=== PATIENT | female | born 1995 | race Caucasian/White ===

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

== ENCOUNTER 2017-03-23 11:58 | Emergency (ER) | payer OTHER ==
[2017-03-23] MEDS ORDERED: ONDANSETRON 4 MG/2 ML VIAL IVP STA (13:35)
[2017-03-23] MEDS ORDERED: SODIUM CHLORIDE 0.9% 2,000 ML IV ONE (13:36)
[2017-03-23] MEDS ORDERED: MORPHINE SULFATE 2 MG/ML SYRINGE IVP ONE (13:36)
--- NOTE | 2017-03-23 13:46 | ED ---
Abdominal Pain HPI - General Chief Complaint: Abdominal Pain Stated Complaint: Vomiting, Diarrhea Time Seen by Provider: 03/23/17 13:26 Source: patient Mode of arrival: ambulatory Limitations: no limitations - History of Present Illness Initial Comments: This is a 21-year-old female who presents with a chief complaint of vomiting, diarrhea and headache which began 1 day ago. The patient was up all night due to the vomiting and diarrhea. She has right-sided abdominal pain which has been exacerbated by the symptoms, but she states this has been present since giving in September 2016. Today, she feels like her face and head are "on fire" and the pain is 9/10 at times. She has a decreased appetite and denies cough, fevers and chills. - Related Data Home Medications Medication Instructions Recorded Confirmed Acetaminophen Tab [Tylenol Tab] 1,000 mg PO Q6HR PRN 03/23/17 03/23/17 Previous Rx's Medication Instructions Recorded Ondansetron Odt [Zofran Odt] 4 mg PO Q8HR PRN #10 tab 03/23/17 Allergies Allergy/AdvReac Type Severity Reaction Status Date / Time bismuth subsalicylate Allergy Anaphylaxis Verified 03/23/17 13:40 [From Pepto-Bismol] codeine Allergy Anaphylaxis Verified 03/23/17 13:40 ibuprofen Allergy Anaphylaxis Verified 03/23/17 13:40 red dye Allergy Unknown Verified 03/23/17 13:40 Review of Systems ROS Statement: Those systems with pertinent positive or pertinent negative responses have been documented in the HPI. ROS Other: All systems not noted in ROS Statement are negative. Past Medical History Past Medical History: No Reported History History of Any Multi-Drug Resistant Organisms: None Reported Past Surgical History: No Surgical Hx Reported Past Anesthesia/Blood Transfusion Reactions: No Reported Reaction Past Psychological History: No Psychological Hx Reported Smoking Status: Current every day smoker Past Alcohol Use History: None Reported Past Drug Use History: None Reported - Past Family History Father Family Medical History: No Reported History General Exam Limitations: no limitations General appearance: alert, in no apparent distress Head exam: Present: atraumatic, normocephalic, normal inspection Eye exam: Present: normal appearance, PERRL, EOMI. Absent: scleral icterus, conjunctival injection, periorbital swelling ENT exam: Present: normal exam, normal oropharynx, mucous membranes moist Neck exam: Present: normal inspection, full ROM. Absent: tenderness, meningismus, lymphadenopathy Respiratory exam: Present: normal lung sounds bilaterally. Absent: respiratory distress, wheezes, rales, rhonchi, stridor Cardiovascular Exam: Present: normal rhythm, tachycardia, normal heart sounds. Absent: systolic murmur, diastolic murmur, rubs, gallop, clicks GI/Abdominal exam: Present: soft, tenderness (Bowel sounds auscultated in all 4 quadrants. Right lower/lft quadrant tender with light palpation.), normal bowel sounds. Absent: distended, guarding, rebound, rigid, mass, bruit, pulsatile mass Back exam: Present: normal inspection. Absent: CVA tenderness (R), CVA tenderness (L) Neurological exam: Present: alert, oriented X3, CN II-XII intact Psychiatric exam: Present: normal affect, normal mood Skin exam: Present: warm, dry, intact, normal color. Absent: rash Course Vital Signs 03/23/17 12:32 Temperature 99.2 F Pulse Rate 126 H Respiratory 18 Rate Blood Pressure 127/76 O2 Sat by Pulse 98 Oximetry Medical Decision Making - Medical Decision Making 21-year-old female to emergency from for abdominal discomfort nausea vomiting diarrhea. Patient states symptoms started yesterday significant other and household had some her symptoms. Patient states she does feel improved at this time. Patient was hydrated feels better after antiemetics. Labwork reviewed unremarkable. Patient's abdomen soft and essentially nontender. - Lab Data Result diagrams: 03/23/17 13:48 03/23/17 13:48 Lab Results 03/23/17 03/23/17 03/23/17 Range/Units 13:48 13:48 13:48 WBC 8.3 (4.0-11.0) k/uL RBC 4.45 (3.80-5.40) m/uL Hgb 13.8 (11.4-16.0) gm/dL Hct 41.4 (34.0-46.0) % MCV 93.0 (80.0-100.0) fL MCH 30.9 (25.0-35.0) pg MCHC 33.3 (31.0-37.0) g/dL RDW 14.4 (11.5-15.5) % Plt Count 210 (150-450) k/uL Neutrophils % 86 % Lymphocytes % 7 % Monocytes % 5 % Eosinophils % 1 % Basophils % 0 % Neutrophils # 7.1 (1.3-7.7) k/uL Lymphocytes # 0.6 L (1.0-4.8) k/uL Monocytes # 0.4 (0-1.0) k/uL Eosinophils # 0.1 (0-0.7) k/uL Basophils # 0.0 (0-0.2) k/uL Sodium 142 (137-145) mmol/L Potassium 3.6 (3.5-5.1) mmol/L Chloride 102 (98-107) mmol/L Carbon Dioxide 26 (22-30) mmol/L Anion Gap 14 mmol/L BUN 12 (7-17) mg/dL Creatinine 0.71 (0.52-1.04) mg/dL Est GFR (MDRD) Af Amer >60 (>60 ml/min/1.73 sqM) Est GFR (MDRD) Non-Af >60 (>60 ml/min/1.73 sqM) Glucose 97 (74-99) mg/dL Calcium 9.5 (8.4-10.2) mg/dL Total Bilirubin 1.4 H (0.2-1.3) mg/dL AST 20 (14-36) U/L ALT 34 (9-52) U/L Alkaline Phosphatase 71 (38-126) U/L Total Protein 7.5 (6.3-8.2) g/dL Albumin 4.5 (3.5-5.0) g/dL Amylase 39 (30-110) U/L Lipase 44 (23-300) U/L Urine Color Urine Appearance (Clear) Urine pH (5.0-8.0) Ur Specific [place] (1.001-1.035) Urine Protein (Negative) Urine Glucose (UA) (Negative) Urine Ketones (Negative) Urine Blood (Negative) Urine Nitrite (Negative) Urine Bilirubin (Negative) Urine Urobilinogen (<2.0) mg/dL Ur Leukocyte Esterase (Negative) Urine HCG, Qual Not Detected (Not Detectd) 03/23/17 Range/Units 13:48 WBC (4.0-11.0) k/uL RBC (3.80-5.40) m/uL Hgb (11.4-16.0) gm/dL Hct (34.0-46.0) % MCV (80.0-100.0) fL MCH (25.0-35.0) pg MCHC (31.0-37.0) g/dL RDW (11.5-15.5) % Plt Count (150-450) k/uL Neutrophils % % Lymphocytes % % Monocytes % % Eosinophils % % Basophils % % Neutrophils # (1.3-7.7) k/uL Lymphocytes # (1.0-4.8) k/uL Monocytes # (0-1.0) k/uL Eosinophils # (0-0.7) k/uL Basophils # (0-0.2) k/uL Sodium (137-145) mmol/L Potassium (3.5-5.1) mmol/L Chloride (98-107) mmol/L Carbon Dioxide (22-30) mmol/L Anion Gap mmol/L BUN (7-17) mg/dL Creatinine (0.52-1.04) mg/dL Est GFR (MDRD) Af Amer (>60 ml/min/1.73 sqM) Est GFR (MDRD) Non-Af (>60 ml/min/1.73 sqM) Glucose (74-99) mg/dL Calcium (8.4-10.2) mg/dL Total Bilirubin (0.2-1.3) mg/dL AST (14-36) U/L ALT (9-52) U/L Alkaline Phosphatase (38-126) U/L Total Protein (6.3-8.2) g/dL Albumin (3.5-5.0) g/dL Amylase (30-110) U/L Lipase (23-300) U/L Urine Color Yellow Urine Appearance Clear (Clear) Urine pH 6.0 (5.0-8.0) Ur Specific [place] 1.030 (1.001-1.035) Urine Protein Trace H (Negative) Urine Glucose (UA) Negative (Negative) Urine Ketones Negative (Negative) Urine Blood Negative (Negative) Urine Nitrite Negative (Negative) Urine Bilirubin Negative (Negative) Urine Urobilinogen 4.0 (<2.0) mg/dL Ur Leukocyte Esterase Negative (Negative) Urine HCG, Qual (Not Detectd) Disposition Clinical Impression: Gastroenteritis Disposition: HOME SELF-CARE Condition: Stable Instructions: Gastroenteritis (ED) Additional Instructions: Please return to the Emergency Department if symptoms worsen or any other concerns. Prescriptions: Ondansetron Odt [Zofran Odt] 4 mg PO Q8HR PRN #10 tab PRN Reason: Nausea Referrals: None,Stated [Primary Care Provider] - 1-2 days Time of Disposition: 14:28
[2017-03-23 14:00] LABS: Appearance,Urine Clear (Clear); Basophils % (A) 0 %; Bilirubin,Urine Negative (Negative); Blood,Urine Negative (Negative); Color,Urine Yellow; Eosinophils # (A) 0.1 k/uL (0-0.7); Eosinophils % (A) 1 %; Glucose,Urine (UA) Negative (Negative); HCT 41.4 % (34.0-46.0); HGB 13.8 gm/dL (11.4-16.0); Ketones,Urine Negative (Negative); Leukocyte Esterase,Urine Negative (Negative); Lymphocytes # (A) 0.6 k/uL (1.0-4.8); Lymphocytes % (A) 7 %; MCH 30.9 pg (25.0-35.0); MCHC 33.3 g/dL (31.0-37.0); Monocytes # (A) 0.4 k/uL (0-1.0); Monocytes % (A) 5 %; Neutrophils # (A) 7.1 k/uL (1.3-7.7); Neutrophils % (A) 86 %; Nitrite,Urine Negative (Negative); Platelet Count 210 k/uL (150-450); Protein,Urine Trace (Negative); RBC 4.45 m/uL (3.80-5.40); RDW 14.4 % (11.5-15.5); WBC 8.3 k/uL (4.0-11.0)
[2017-03-23] MEDS ORDERED: MORPHINE SULFATE 4 MG/ML SYRINGE IVP ONE (14:00)
[2017-03-23 14:06] LABS: ALT 34 U/L (9-52); AST 20 U/L (14-36); Albumin 4.5 g/dL (3.5-5.0); Alkaline Phosphatase 71 U/L (38-126); Amylase 39 U/L (30-110); Anion Gap 14 mmol/L; Blood Urea Nitrogen 12 mg/dL (7-17); Calcium 9.5 mg/dL (8.4-10.2); Carbon Dioxide 26 mmol/L (22-30); Chloride 102 mmol/L (98-107); Glucose 97 mg/dL (74-99); Lipase 44 U/L (23-300); Potassium 3.6 mmol/L (3.5-5.1); Sodium 142 mmol/L (137-145); Total Bilirubin 1.4 mg/dL (0.2-1.3); Total Protein 7.5 g/dL (6.3-8.2)
[2017-03-23] MEDS ORDERED: ACETAMINOPHEN TAB 500 MG TAB PO STA (14:26)
[2017-03-23 14:34] VITALS: RESP 16
[2017-03-23 15:15] VITALS: BP 135/76; PULSE 106; TEMP 98
== END 2017-03-23 15:15 | disposition home or self-care (01) ==
LOC: EC 11:58
DX: K52.9 Noninfective gastroenteritis and colitis, unspecified (principal); F17.200 Nicotine dependence, unspecified, uncomplicated; Z88.5 Allergy status to narcotic agent; Z88.6 Allergy status to analgesic agent; Z91.02 Food additives allergy status; Z88.8 Allergy status to other drugs, medicaments and biological substances
CPT/HCPCS: 36415; 80053; 82150; 83690; 85025; 81003; 81025; 99284; 96374; 96375; 96361; J2270; J2405

== ENCOUNTER 2017-05-19 12:27 | Emergency (ER) | payer OTHER ==
[2017-05-19 13:17] VITALS: RESP 20
--- NOTE | 2017-05-19 14:01 | ED ---
General Adult HPI - General Chief complaint: ENT Stated complaint: Sore throat Time Seen by Provider: 05/19/17 13:25 Source: patient, RN notes reviewed Mode of arrival: ambulatory Limitations: no limitations - History of Present Illness Initial comments: 21-year-old female presents to the emergency department for a chief complaint of pilonidal cyst. She has had the cyst for about 2 months but it just started draining yesterday. Patient has seen Dr. Boyer who put her on Keflex and did not want to do any surgery. She has an appointment with him again in a week. Patient denies any fevers or chills at home. Patient denies any spreading redness or increasing infection. Patient took a bath today which helped it to drain. Patient states it is not all that uncomfortable. She can sit up fine and only has discomfort when she presses on that area. Patient is in a competition for [employer] this weekend and is worried about healing time. - Related Data Previous Rx's Medication Instructions Recorded Amoxic-Pot Clav 500-125 mg 1 tab PO Q8H 10 Days tab 05/19/17 [Augmentin 500-125 mg] Allergies Allergy/AdvReac Type Severity Reaction Status Date / Time bismuth subsalicylate Allergy Anaphylaxis Verified 05/19/17 13:17 [From Pepto-Bismol] codeine Allergy Anaphylaxis Verified 05/19/17 13:17 ibuprofen Allergy Anaphylaxis Verified 05/19/17 13:17 red dye Allergy Unknown Verified 05/19/17 13:17 Review of Systems ROS Statement: Those systems with pertinent positive or pertinent negative responses have been documented in the HPI. ROS Other: All systems not noted in ROS Statement are negative. Past Medical History Past Medical History: No Reported History History of Any Multi-Drug Resistant Organisms: None Reported Past Surgical History: No Surgical Hx Reported Past Anesthesia/Blood Transfusion Reactions: No Reported Reaction Past Psychological History: No Psychological Hx Reported Smoking Status: Current every day smoker Past Alcohol Use History: None Reported Past Drug Use History: None Reported - Past Family History Father Family Medical History: No Reported History General Exam Limitations: no limitations Respiratory exam: Present: normal lung sounds bilaterally. Absent: respiratory distress, wheezes, rales, rhonchi, stridor Cardiovascular Exam: Present: regular rate, normal rhythm, normal heart sounds. Absent: systolic murmur, diastolic murmur, rubs, gallop, clicks Skin exam: Present: other (1 cm pilonidal cyst on the cleft of the buttock. Cyst has a drainage point already. No spreading redness beyond the site.) Course Vital Signs 05/19/17 13:15 Temperature 99 F Pulse Rate 115 H Respiratory 20 Rate Blood Pressure 139/80 O2 Sat by Pulse 98 Oximetry Medical Decision Making - Medical Decision Making 21-year-old female presents to the emergency department for chief complaint of pilonidal cyst. She has done a course of Keflex about 2 months ago. She saw Dr. Polanco who did not want to perform surgery 2 months ago. She has another appointment with him on Tuesday. The cyst is about 1 cm and has already formed a drainage point. 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 Discussed using warm compresses on the cyst which will help it to drain. They will follow up with the surgeon in one week. She will take Augmentin until that time. She will return to the emergency Department if she has any increasing signs of infection or spreading redness. She will also return if she develops a fever. She can take ibuprofen and Tylenol for pain relief. Disposition Clinical Impression: Pilonidal abscess Disposition: HOME SELF-CARE Condition: Good Instructions: Pilonidal Cyst (ED), Warm Compress or Soak (ED) Additional Instructions: Please take ibuprofen or Tylenol for pain relief. Please take course of Augmentin as directed. Please follow-up with the surgeon in one week as discussed. Please return to the emergency department if symptoms are worsening , you develop fevers, or you notice spreading redness. Prescriptions: Amoxic-Pot Clav 500-125 mg [Augmentin 500-125 mg] 1 tab PO Q8H 10 Days tab Referrals: None,Stated [Primary Care Provider] - 1-2 days
--- NOTE | 2017-05-19 14:38 | XR ---
EXAMINATION TYPE: XR chest 2V DATE OF EXAM: 05/19/2017 COMPARISON: None HISTORY: 21-year-old female with pain TECHNIQUE: PA and lateral views FINDINGS: The cardiomediastinal silhouette, aorta, and pulmonary vasculature are within normal limits. Subtle p atchy right lower lung density asymmetric to the contralateral side. No other consolidation or pleura l effusion. IMPRESSION: Possible subtle early developing infiltrate at the right lower lung.
--- NOTE | 2017-05-19 14:48 | ED ---
Medical Decision Making - Medical Decision Making 21-year-old female presents to the emergency department for a chief complaint of cough. Patient states she has had a cough for about 4 days now. Patient also admits to congestion and states she has had ear pressure. Patient states she has a slight sore throat when she coughs. Patient denies any abdominal pain nausea or vomiting. Patient denies any chest pain. Patient denies a history of asthma. Patient denies shortness of breath or wheezing. Patient states she has had some chills but has not had any fevers at home. She has not taken anything for relief. On exam patient has clear TMs and a slightly erythematous throat. No exudates present. Patient has mild tenderness of the submandibular lymph nodes. No tenderness on the back of the neck. Patient's lungs are clear to auscultation bilaterally. On cardiovascular exam patient has a regular rate and rhythm and no murmurs or rubs. Patient has a benign abdominal exam with no tenderness. Patient is afebrile on presentation. Temperature 99, pulse 115, respirations 20 , blood pressure 139/80 and pulse ox 98% on room air. Negative influenza B and B. Negative group A strep. Chest x-ray reveals a subtle patchy right lower lung density. No other consolidation or pleural effusion. Patient will be given a course of azithromycin as well as Tessalon Perles. Patient is to follow up with primary care provider in one to 2 days. She is to return to the emergency Department if she has any worsening symptoms including shortness of breath or high fevers. - Lab Data Lab Results 05/19/17 05/19/17 05/19/17 Range/Units 13:35 13:35 13:35 Urine HCG, Qual Not Detected (Not Detectd) Influenza Type A RNA Not Detected (Not Detectd) Influenza Type B (PCR) Not Detected (Not Detectd) Group A Strep Rapid Negative (Negative) Disposition Clinical Impression: Pneumonia Disposition: HOME SELF-CARE Condition: Good Instructions: Pneumonia (ED) Additional Instructions: Please take ibuprofen or Tylenol for pain relief and fever reduction. Please take course of Azithromycin as directed. Please follow-up with primary care provider in one to 2 days. Please return to the emergency department if symptoms are worsening, you develop high fevers, or increasing shortness of breath. Prescriptions: Amoxic-Pot Clav 500-125 mg [Augmentin 500-125 mg] 1 tab PO Q8H 10 Days tab Azithromycin [Zithromax Z-pack] 250 mg PO DIRECTED #6 tab Benzonatate [Tessalon Perles] 200 mg PO Q8H PRN #15 capsule PRN Reason: Cough Referrals: None,Stated [Primary Care Provider] - 1-2 days
[2017-05-19 15:06] VITALS: BP 122/72; PULSE 94; TEMP 98.3
== END 2017-05-19 15:05 | disposition home or self-care (01) ==
LOC: EC 12:27
DX: J18.9 Pneumonia, unspecified organism (principal); L05.91 Pilonidal cyst without abscess; J02.9 Acute pharyngitis, unspecified; F17.200 Nicotine dependence, unspecified, uncomplicated; Z88.5 Allergy status to narcotic agent; Z88.6 Allergy status to analgesic agent; Z91.048 Other nonmedicinal substance allergy status; Z88.8 Allergy status to other drugs, medicaments and biological substances
CPT/HCPCS: 71046; 81025; 87081; 87430; 87502; 99283

== ENCOUNTER 2018-08-02 17:12 | Emergency (ER) | payer OTHER ==
--- NOTE | 2018-08-02 17:44 | ED ---
ENT HPI - General Chief complaint: ENT Stated complaint: nose bleed Time Seen by Provider: 08/02/18 17:19 Source: patient Mode of arrival: ambulatory Limitations: no limitations - History of Present Illness Initial comments: Patient is a 23-year-old female presenting to the emergency room for complaints of nosebleed 1 hour. Patient denies any trauma to her nose. She denies ever having a nosebleed this long in the past. Denies recent illness, new medications. Patient has no significant past medical history. No other complaints at this time. - Related Data Previous Rx's Medication Instructions Recorded Amoxic-Pot Clav 500-125 mg 1 tab PO Q8H 10 Days tab 05/19/17 [Augmentin 500-125 mg] Azithromycin [Zithromax Z-pack] 250 mg PO DIRECTED #6 tab 05/19/17 Benzonatate [Tessalon Perles] 200 mg PO Q8H PRN #15 capsule 05/19/17 Allergies Allergy/AdvReac Type Severity Reaction Status Date / Time bismuth subsalicylate Allergy Anaphylaxis Verified 08/02/18 17:17 [From Pepto-Bismol] codeine Allergy Anaphylaxis Verified 08/02/18 17:17 ibuprofen Allergy Anaphylaxis Verified 08/02/18 17:17 red dye Allergy Unknown Verified 08/02/18 17:17 Review of Systems ROS Statement: Those systems with pertinent positive or pertinent negative responses have been documented in the HPI. ROS Other: All systems not noted in ROS Statement are negative. Past Medical History Past Medical History: No Reported History History of Any Multi-Drug Resistant Organisms: None Reported Past Surgical History: No Surgical Hx Reported Past Anesthesia/Blood Transfusion Reactions: No Reported Reaction Past Psychological History: No Psychological Hx Reported Smoking Status: Current every day smoker Past Alcohol Use History: None Reported Past Drug Use History: None Reported - Past Family History Father Family Medical History: No Reported History General Exam - General Exam Comments Initial Comments: GENERAL: Well-appearing, well-nourished and in no acute distress. HEAD: Atraumatic, normocephalic. EYES: Pupils equal round and reactive to light, extraocular movements intact, sclera anicteric, conjunctiva are normal. ENT: TMs normal, nares patent, no active bleeding, oropharynx clear without exudates. Moist mucous membranes. NECK: Normal range of motion, supple without lymphadenopathy or JVD. LUNGS: Breath sounds clear to auscultation bilaterally and equal. No wheezes rales or rhonchi. HEART: Regular rate and rhythm without murmurs, rubs or gallops. ABDOMEN: Soft, nontender, normoactive bowel sounds. No guarding, no rebound. No masses appreciated. : Deferred EXTREMITIES: Normal range of motion, no pitting or edema. No clubbing or cyanosis. NEUROLOGICAL: Cranial nerves II through XII grossly intact. Normal speech, normal gait. PSYCH: Normal mood, normal affect. SKIN: Warm, Dry, normal turgor, no rashes or lesions noted. Limitations: no limitations Course Vital Signs 08/02/18 08/02/18 17:15 18:11 Temperature 97.3 F L 98.6 F Pulse Rate 110 H 95 Respiratory 18 16 Rate Blood Pressure 132/90 136/87 O2 Sat by Pulse 98 98 Oximetry Medical Decision Making - Medical Decision Making Patient is a 23-year-old healthy female presenting to the ER with complaints of nosebleed 1 hour. Patient's denies any trauma to the nose, no new medications. Patient has no second past medical history. Upon arrival in nose clamp was put on her nose. There is no active bleeding when the nose clamp came off. No bleeding for 15 minutes post. Patient was sent home with a nose clip and Afrin and instructions on what to do to stop the nosebleed. Return parameters were discussed. Disposition Clinical Impression: Epistaxis not due to trauma Disposition: HOME SELF-CARE Condition: Stable Instructions (If sedation given, give patient instructions): Nosebleed (ED) Additional Instructions: Please return to the Emergency Department if symptoms worsen or any other concerns. Use the nose clamp, Afrin for further treatment. Follow-up with PCP as symptoms continue. Is patient prescribed a controlled substance at d/c from ED?: No Referrals: None,Stated [Primary Care Provider] - 1-2 days
[2018-08-02] MEDS ORDERED: OXYMETAZOLINE 0.05% NASL SPRAY 1 SPRAY BOTTLE NASAL STA (17:50)
[2018-08-02 18:13] VITALS: BP 136/87; PULSE 95; RESP 16; TEMP 98.6
== END 2018-08-02 18:10 | disposition home or self-care (01) ==
LOC: EC 17:12
DX: R04.0 Epistaxis (principal); F17.200 Nicotine dependence, unspecified, uncomplicated; Z88.8 Allergy status to other drugs, medicaments and biological substances; Z88.5 Allergy status to narcotic agent; Z88.6 Allergy status to analgesic agent; Z91.048 Other nonmedicinal substance allergy status
CPT/HCPCS: 99283

== ENCOUNTER 2018-09-22 09:16 | Emergency (ER) | payer OTHER ==
[2018-09-22] MEDS ORDERED: ONDANSETRON 4 MG/2 ML VIAL IVP STA (10:39)
[2018-09-22] MEDS ORDERED: HYDROmorphone 0.5 MG/0.5 ML SYRINGE IVP STA ×2 (10:39→11:56)
[2018-09-22 11:05] LABS: Basophils % (A) 0 %; Eosinophils # (A) 0.1 k/uL (0-0.7); Eosinophils % (A) 1 %; HGB 13.9 gm/dL (11.4-16.0); Lymphocytes # (A) 1.2 k/uL (1.0-4.8); Lymphocytes % (A) 22 %; MCH 30.6 pg (25.0-35.0); MCHC 33.2 g/dL (31.0-37.0); MCV 92.1 fL (80.0-100.0); Mean Platelet Volume 8.1; Monocytes # (A) 0.4 k/uL (0-1.0); Monocytes % (A) 8 %; Neutrophils # (A) 3.7 k/uL (1.3-7.7); Neutrophils % (A) 66 %; Platelet Count 209 k/uL (150-450); RBC 4.56 m/uL (3.80-5.40); RDW 13.4 % (11.5-15.5); WBC 5.5 k/uL (3.8-10.6)
[2018-09-22 11:18] LABS: ALT 30 U/L (9-52); AST 29 U/L (14-36); African American GFR (CKD) >90 (>60 ml/min/1.73 sqM); Albumin 4.6 g/dL (3.5-5.0); Alkaline Phosphatase 77 U/L (38-126); Anion Gap 13 mmol/L; Blood Urea Nitrogen 9 mg/dL (7-17); Calcium 9.6 mg/dL (8.4-10.2); Carbon Dioxide 23 mmol/L (22-30); Chloride 106 mmol/L (98-107); Glucose 84 mg/dL (74-99); Potassium 4.3 mmol/L (3.5-5.1); Sodium 142 mmol/L (137-145); Total Bilirubin 0.6 mg/dL (0.2-1.3); Total Protein 8.3 g/dL (6.3-8.2)
--- NOTE | 2018-09-22 11:34 | ED ---
Back Pain HPI - General Chief Complaint: Back Pain/Injury Stated Complaint: Back pain Time Seen by Provider: 09/22/18 09:52 Source: patient Limitations: no limitations - History of Present Illness Initial Comments: 23-year-old female presenting today for chief complaint of right-sided back pain. Patient states that she has had history of chronic back pain for the past 2 years. She states that for the past week as been increasing particularly in the last 2 days. She states that spasms and this causes severe pain. She states she is currently having a back spasm. Patient states she does have young children that she is picking up otherwise there is no direct trauma or injuries to the back denies recent MVAs. Patient denies low back any loss of bowel bladder control. Patient states that she felt hot and cold a few days ago- thought maybe she had a fever, but also had vomiting and diarrhea at that time she denies recording a fever. Patient denies any chest pain shortness of breath. Patient denies abdominal pain or . Patient denies history of cancer, IV drug use weakness of the upper extremities. Remaining review of system negative. Upon arrival patient afebrile. She appears uncomfortable holding left side up midback stating that it hurt. Denies history of kidney stones, hematuria or urinary symptoms. - Related Data Previous Rx's Medication Instructions Recorded Amoxic-Pot Clav 500-125 mg 1 tab PO Q8H 10 Days tab 05/19/17 [Augmentin 500-125 mg] Azithromycin [Zithromax Z-pack] 250 mg PO DIRECTED #6 tab 05/19/17 Benzonatate [Tessalon Perles] 200 mg PO Q8H PRN #15 capsule 05/19/17 Cyclobenzaprine [Flexeril] 10 mg PO TID PRN 7 Days #21 tab 09/22/18 Allergies Allergy/AdvReac Type Severity Reaction Status Date / Time bismuth subsalicylate Allergy Anaphylaxis Verified 09/22/18 09:42 [From Pepto-Bismol] codeine Allergy Anaphylaxis Verified 09/22/18 09:42 ibuprofen Allergy Anaphylaxis Verified 09/22/18 09:42 red dye Allergy Unknown Verified 09/22/18 09:42 Review of Systems ROS Statement: Those systems with pertinent positive or pertinent negative responses have been documented in the HPI. ROS Other: All systems not noted in ROS Statement are negative. Past Medical History Past Medical History: No Reported History History of Any Multi-Drug Resistant Organisms: None Reported Past Surgical History: No Surgical Hx Reported Past Anesthesia/Blood Transfusion Reactions: No Reported Reaction Past Psychological History: No Psychological Hx Reported Smoking Status: Current every day smoker Past Alcohol Use History: None Reported Past Drug Use History: None Reported - Past Family History Father Family Medical History: No Reported History General Exam - General Exam Comments Initial Comments: General: The patient is awake and alert, appears very uncomfortable Eye: +3 mm pupils are equal, round and reactive to light, extra-ocular movements are intact. No nystagmus. There is normal conjunctiva bilaterally. No signs of icterus. Ears, nose, mouth and throat: There are moist mucous membranes and no oral lesions. Neck: The neck is supple, there is no tenderness or JVD. Cardiovascular: There is a regular rate and rhythm. No murmur, rub or gallop is appreciated. Respiratory: Lungs are clear to auscultation, respirations are non-labored, breath sounds are equal. No wheezes, stridor, rales, or rhonchi. Gastrointestinal: Soft, non-distended, non-tender abdomen without masses or organomegaly noted. There is no rebound or guarding present. Musculoskeletal: Upon section of the cervical thoracic and lumbar spine there's no skin abnormalities. Patient has tenderness palpation paravertebral of the left mid thoracic spine. Patient has no midline tenderness. Strength 5/5 and ROM of the UE and LE equal in comparison b/l. Sensation intact of the LE and UE equal in comparison b/l. Radial and DP pulses equal bilaterally 2+. No noted myoclonus, fasciculations or decreased muscle tone. Neurological: A&O x 3. CN II-XII intact, There are no obvious motor or sensory deficits. Coordination appears grossly intact. Speech is normal. Skin: Skin is warm and dry and no rashes or lesions are noted. Psychiatric: Cooperative, appropriate mood & affect, normal judgment. Limitations: no limitations Course Vital Signs 09/22/18 09/22/18 09/22/18 09:40 12:04 14:08 Temperature 98 F 97.8 F Pulse Rate 112 H 76 105 H Respiratory 16 16 18 Rate Blood Pressure 159/126 121/65 131/91 O2 Sat by Pulse 99 98 98 Oximetry - Reevaluation(s) Reevaluation #1: After second dose of pain medication patient BP decreasing, she is resting comfortably in bed. She states that it is now gone. Medical Decision Making - Medical Decision Making 23 year old female presenting for back pain. Stating it feels sharp and spasm in the mid/lower thoracic spine. Denies CP/SOB. No midline tenderness. No fevers, history of chills--but no recorded temperature. Patient imaging studies (-) for acute process. Pain controlled in the ER. Patient neurovascular intact. No low back pain or signs of cauda equina. Patient upon reevaluation after two doses of pain medications has no pain. Patient as she describes pain as a spasm will be given RX for flexeril outpatient. Patient discharged appearing well. With PCP f/u. Return parameters were discussed. - Lab Data Result diagrams: 09/22/18 10:20 09/22/18 10:20 Lab Results 09/22/18 09/22/18 09/22/18 Range/Units 10:20 10:20 11:51 WBC 5.5 (3.8-10.6) k/uL RBC 4.56 (3.80-5.40) m/uL Hgb 13.9 (11.4-16.0) gm/dL Hct 42.0 (34.0-46.0) % MCV 92.1 (80.0-100.0) fL MCH 30.6 (25.0-35.0) pg MCHC 33.2 (31.0-37.0) g/dL RDW 13.4 (11.5-15.5) % Plt Count 209 (150-450) k/uL Neutrophils % 66 % Lymphocytes % 22 % Monocytes % 8 % Eosinophils % 1 % Basophils % 0 % Neutrophils # 3.7 (1.3-7.7) k/uL Lymphocytes # 1.2 (1.0-4.8) k/uL Monocytes # 0.4 (0-1.0) k/uL Eosinophils # 0.1 (0-0.7) k/uL Basophils # 0.0 (0-0.2) k/uL Sodium 142 (137-145) mmol/L Potassium 4.3 (3.5-5.1) mmol/L Chloride 106 (98-107) mmol/L Carbon Dioxide 23 (22-30) mmol/L Anion Gap 13 mmol/L BUN 9 (7-17) mg/dL Creatinine 0.67 (0.52-1.04) mg/dL Est GFR (CKD-EPI)AfAm >90 (>60 ml/min/1.73 sqM) Est GFR (CKD-EPI)NonAf >90 (>60 ml/min/1.73 sqM) Glucose 84 (74-99) mg/dL Calcium 9.6 (8.4-10.2) mg/dL Total Bilirubin 0.6 (0.2-1.3) mg/dL AST 29 (14-36) U/L ALT 30 (9-52) U/L Alkaline Phosphatase 77 (38-126) U/L Total Protein 8.3 H (6.3-8.2) g/dL Albumin 4.6 (3.5-5.0) g/dL Lipase 76 (23-300) U/L Urine Color Urine Appearance (Clear) Urine pH (5.0-8.0) Ur Specific [place] (1.001-1.035) Urine Protein (Negative) Urine Glucose (UA) (Negative) Urine Ketones (Negative) Urine Blood (Negative) Urine Nitrite (Negative) Urine Bilirubin (Negative) Urine Urobilinogen (<2.0) mg/dL Ur Leukocyte Esterase (Negative) Urine RBC (0-5) /hpf Urine WBC (0-5) /hpf Ur Squamous Epith Cells (0-4) /hpf Urine Bacteria (None) /hpf Urine Mucus (None) /hpf Urine HCG, Qual Not Detected (Not Detectd) 09/22/18 Range/Units 11:51 WBC (3.8-10.6) k/uL RBC (3.80-5.40) m/uL Hgb (11.4-16.0) gm/dL Hct (34.0-46.0) % MCV (80.0-100.0) fL MCH (25.0-35.0) pg MCHC (31.0-37.0) g/dL RDW (11.5-15.5) % Plt Count (150-450) k/uL Neutrophils % % Lymphocytes % % Monocytes % % Eosinophils % % Basophils % % Neutrophils # (1.3-7.7) k/uL Lymphocytes # (1.0-4.8) k/uL Monocytes # (0-1.0) k/uL Eosinophils # (0-0.7) k/uL Basophils # (0-0.2) k/uL Sodium (137-145) mmol/L Potassium (3.5-5.1) mmol/L Chloride (98-107) mmol/L Carbon Dioxide (22-30) mmol/L Anion Gap mmol/L BUN (7-17) mg/dL Creatinine (0.52-1.04) mg/dL Est GFR (CKD-EPI)AfAm (>60 ml/min/1.73 sqM) Est GFR (CKD-EPI)NonAf (>60 ml/min/1.73 sqM) Glucose (74-99) mg/dL Calcium (8.4-10.2) mg/dL Total Bilirubin (0.2-1.3) mg/dL AST (14-36) U/L ALT (9-52) U/L Alkaline Phosphatase (38-126) U/L Total Protein (6.3-8.2) g/dL Albumin (3.5-5.0) g/dL Lipase (23-300) U/L Urine Color Yellow Urine Appearance Cloudy H (Clear) Urine pH 5.5 (5.0-8.0) Ur Specific [place] 1.035 (1.001-1.035) Urine Protein Trace H (Negative) Urine Glucose (UA) Negative (Negative) Urine Ketones Negative (Negative) Urine Blood Trace H (Negative) Urine Nitrite Negative (Negative) Urine Bilirubin Negative (Negative) Urine Urobilinogen <2.0 (<2.0) mg/dL Ur Leukocyte Esterase Small H (Negative) Urine RBC 7 H (0-5) /hpf Urine WBC 7 H (0-5) /hpf Ur Squamous Epith Cells 13 H (0-4) /hpf Urine Bacteria Rare H (None) /hpf Urine Mucus Many H (None) /hpf Urine HCG, Qual (Not Detectd) Disposition Clinical Impression: Back pain Disposition: HOME SELF-CARE Condition: Good Instructions (If sedation given, give patient instructions): Acute Low Back Pain (ED) Additional Instructions: Please use medication as discussed. Please follow-up with family doctor in the next 2 days. Please return to emergency room if the symptoms increase or worsen or for any other concerns. Prescriptions: Cyclobenzaprine [Flexeril] 10 mg PO TID PRN 7 Days #21 tab PRN Reason: Muscle Spasm Is patient prescribed a controlled substance at d/c from ED?: No Referrals: None,Stated [Primary Care Provider] - 1-2 days [facility] - 1-2 days Nanette Swenson DO [Doctor of Osteopathic Medicine] - 1-2 days Time of Disposition: 13:53
--- NOTE | 2018-09-22 11:36 | XR ---
EXAMINATION TYPE: XR chest 2V DATE OF EXAM: 09/22/2018 COMPARISON: 05/19/2017 HISTORY: Left-sided back pain TECHNIQUE: Frontal and lateral views of the chest are obtained. FINDINGS: There is no focal air space opacity, pleural effusion, or pneumothorax seen. The cardiac silhouette size is within normal limits. The osseous structures are intact. IMPRESSION: No acute cardiopulmonary process.
[2018-09-22 12:16] LABS: Appearance,Urine Cloudy (Clear); Bacteria,Urine Rare /hpf; Bilirubin,Urine Negative (Negative); Blood,Urine Trace (Negative); Color,Urine Yellow; Glucose,Urine (UA) Negative (Negative); Ketones,Urine Negative (Negative); Leukocyte Esterase,Urine Small (Negative); Mucus,Urine Many /hpf; Nitrite,Urine Negative (Negative); PH, Urine 5.5 (5.0-8.0); Protein,Urine Trace (Negative); RBC,Urine 7 /hpf (0-5); Specific Gravity,Urine 1.035 (1.001-1.035); Squamous Epithelial Cell,Urine 13 /hpf (0-4); Urobilinogen,Urine <2.0 mg/dL (<2.0)
--- NOTE | 2018-09-22 13:33 | CT ---
EXAMINATION TYPE: CT thoracic spine w con DATE OF EXAM: 09/22/2018 COMPARISON: None. HISTORY: mid back pain. CT DLP: 669.2 mGycm Automated exposure control for dose reduction was used. CONTRAST: Performed with IV Contrast, patient injected with 100 mL of Isovue 300. FINDINGS: Thoracic spine shows satisfactory alignment without evidence of acute fracture or dislocation. Verteb ral body heights and disc space heights are maintained. Spinal canal is grossly preserved. No suspici ous enhancement is seen. Visualized lungs are clear. IMPRESSION: As above.
--- NOTE | 2018-09-22 13:40 | CT ---
EXAMINATION TYPE: CT abdomen pelvis w con DATE OF EXAM: 09/22/2018 HISTORY: mid back pain. CT DLP: 751mGycm Automated Exposure Control for Dose Reduction was Utilized. CONTRAST: CT scan of the abdomen and pelvis is performed with IV Contrast, patient injected with 100 mL of Isov ue 300. COMPARISON: None. FINDINGS: LUNG BASES: 2 mm nodular density at the right lung base is seen on image 4, solid in nature. LIVER/GB: Hepatic parenchyma is diffusely hypoattenuated in comparison to that of the spleen, most co mmonly seen in hepatic steatosis. This finding limits evaluation for hepatic masses. No gross evidenc e of hepatic mass is seen. No intrahepatic biliary ductal dilatation. No cholelithiasis or pericholec ystic fluid. PANCREAS: No significant abnormality is seen. SPLEEN: Splenomegaly is incidentally seen with the spleen measuring 14.5 cm in craniocaudal dimension . ADRENALS: No significant abnormality is seen. KIDNEYS: Dystrophic calcification is seen of the left inferior pole. No obstructing calculus or hydro nephrosis. Kidneys enhance and excrete symmetrically. BOWEL: No significant abnormality is seen. Appendix is within normal limits measuring 5 mm. UTERUS/ADNEXA: Trace amount of free fluid is seen within the posterior cul-de-sac, likely physiologic in nature. Follicular and/or cystic changes of the ovaries. This is also likely physiologic in natur e. LYMPH NODES: No greater than 1cm abdominal or pelvic lymph nodes are appreciated. OSSEOUS STRUCTURES: Straightening of usual lumbar lordosis that may relate to muscular sprain/spasm o r patient positioning. OTHER: Mild diastases recti is seen. IMPRESSION: 1. Hepatic steatosis. 2. Splenomegaly and benign granulomatous changes of the spleen and liver. 3. Physiologic follicular and/or cystic changes of the ovaries with scant amount of free fluid in the pelvis, also likely physiologic. 4. No CT evidence of acute appendicitis or bowel obstruction. 5. 2 mm right basilar pulmonary nodule that may be inflammatory or infectious in a patient of this ag e group.
[2018-09-22 14:11] VITALS: BP 131/91; PULSE 105; RESP 18; TEMP 97.8
== END 2018-09-22 14:13 | disposition home or self-care (01) ==
LOC: EC 09:16
DX: M54.9 Dorsalgia, unspecified (principal); F17.200 Nicotine dependence, unspecified, uncomplicated; Z88.6 Allergy status to analgesic agent; Z91.048 Other nonmedicinal substance allergy status; Z88.8 Allergy status to other drugs, medicaments and biological substances; Z88.5 Allergy status to narcotic agent
CPT/HCPCS: 36415; 80053; 83690; 85025; 81001; 81025; 71046; 72129; 74177; 99284; 96374; 96375; 96376; J2405; J1170; Q9967

== ENCOUNTER 2020-08-01 17:16 | Emergency (ER) | payer OTHER ==
--- NOTE | 2020-08-01 18:24 | XR ---
EXAMINATION TYPE: XR chest 2V DATE OF EXAM: 08/01/2020 COMPARISON: 09/22/2018 HISTORY: Cough TECHNIQUE: FINDINGS: Heart and mediastinum are normal. Lungs are clear. Diaphragm is normal. Bony thorax appears normal. IMPRESSION: Normal chest. No change.
[2020-08-01 18:27] VITALS: RESP 19
--- NOTE | 2020-08-01 19:09 | ED ---
General Adult HPI - General Chief complaint: Upper Respiratory Infection Stated complaint: , covid symptoms Time Seen by Provider: 08/01/20 17:57 Source: patient Mode of arrival: ambulatory Limitations: no limitations - History of Present Illness Initial comments: 25-year-old female presents to the emergency department with a chief complaint of cough and congestion. States her symptoms began about 3 days ago along with sore throat, clear bilateral rhinorrhea and a productive cough. States she also recently found out that she was . She was a former cigarette smoker but stopped doing it. Denies any associated chest pain or shortness of breath. Denies any fevers or chills. Does have seasonal ALLERGIES. She denies any abdominal pain, cramping, nausea, vomiting, diarrhea. Denies any vaginal discharge, bleeding or any urinary symptoms. She is concerned for possible Covid. - Related Data Previous Rx's Medication Instructions Recorded Amoxic-Pot Clav 500-125 mg 1 tab PO Q8H 10 Days tab 05/19/17 [Augmentin 500-125 mg] Azithromycin [Zithromax Z-pack (6 250 mg PO DIRECTED #6 tab 05/19/17 tabs)] Benzonatate [Tessalon Perles] 200 mg PO Q8H PRN #15 capsule 05/19/17 Cyclobenzaprine [Flexeril] 10 mg PO TID PRN 7 Days #21 tab 09/22/18 Allergies Allergy/AdvReac Type Severity Reaction Status Date / Time bismuth subsalicylate Allergy Anaphylaxis Verified 08/01/20 17:48 [From Pepto-Bismol] codeine Allergy Anaphylaxis Verified 08/01/20 17:48 ibuprofen Allergy Anaphylaxis Verified 08/01/20 17:48 red dye Allergy Unknown Verified 08/01/20 17:48 Review of Systems ROS Statement: Those systems with pertinent positive or pertinent negative responses have been documented in the HPI. ROS Other: All systems not noted in ROS Statement are negative. Past Medical History Past Medical History: No Reported History History of Any Multi-Drug Resistant Organisms: None Reported Past Surgical History: No Surgical Hx Reported Past Anesthesia/Blood Transfusion Reactions: No Reported Reaction Past Psychological History: No Psychological Hx Reported Smoking Status: Former smoker Past Alcohol Use History: None Reported Past Drug Use History: Marijuana - Past Family History Father Family Medical History: No Reported History General Exam Limitations: no limitations General appearance: alert, in no apparent distress Head exam: Present: atraumatic, normocephalic, normal inspection Eye exam: Present: normal appearance, PERRL, EOMI Pupils: Present: normal accommodation ENT exam: Present: normal exam, normal oropharynx, mucous membranes moist, TM's normal bilaterally, normal external ear exam Neck exam: Present: normal inspection, full ROM. Absent: tenderness Respiratory exam: Present: normal lung sounds bilaterally. Absent: respiratory distress, wheezes, rales, rhonchi, stridor, chest wall tenderness, accessory muscle use Cardiovascular Exam: Present: regular rate, normal rhythm, normal heart sounds. Absent: systolic murmur GI/Abdominal exam: Present: soft. Absent: distended, tenderness, guarding, rebound, rigid Extremities exam: Present: normal inspection, full ROM, normal capillary refill. Absent: tenderness, pedal edema, joint swelling Back exam: Present: normal inspection, full ROM. Absent: tenderness, CVA tenderness (R), CVA tenderness (L) Neurological exam: Present: alert, oriented X3 Psychiatric exam: Present: normal affect, normal mood Skin exam: Present: warm, dry, intact, normal color Course Vital Signs 08/01/20 08/01/20 17:45 18:19 Temperature 98.1 F Pulse Rate 100 Respiratory 20 19 Rate Blood Pressure 117/78 O2 Sat by Pulse 100 Oximetry Medical Decision Making - Medical Decision Making 25-year-old female presents to the emergency department a chief complaint of cough and congestion. On physical examination, patient is well-appearing with no signs of acute respiratory distress. Physical examination is unremarkable. Patient ready has an appointment with her OB. TobraDex negative. Chest x-ray is unremarkable. I suspect patient has an upper respiratory infection. Advised to use [id number] Zyrtec which is spreading to safe. Return primary's were thoroughly discussed the patient was an ascending agreeable. Case discussed with - Lab Data Lab Results 08/01/20 Range/Units 18:13 Coronavirus (PCR) Not Detected (Not Detectd) Disposition Clinical Impression: Acute upper respiratory infection Disposition: HOME SELF-CARE Condition: Stable Instructions (If sedation given, give patient instructions): Upper Respiratory Infection (ED) Additional Instructions: Please return to the Emergency Department if symptoms worsen or any other concerns. Is patient prescribed a controlled substance at d/c from ED?: No Referrals: None,Stated [Primary Care Provider] - 1-2 days Time of Disposition: 19:08
[2020-08-01 19:42] VITALS: BP 119/68; PULSE 71; TEMP 98.3
== END 2020-08-01 19:33 | disposition home or self-care (01) ==
LOC: EC 17:16
DX: J06.9 Acute upper respiratory infection, unspecified (principal); F12.90 Cannabis use, unspecified, uncomplicated; Z87.891 Personal history of nicotine dependence
CPT/HCPCS: 71046; 87635; 99283

== ENCOUNTER 2020-11-09 13:11 | Emergency (ER) | payer OTHER ==
[2020-11-09 14:01] VITALS: BP 125/70; PULSE 94; RESP 18; TEMP 99
[2020-11-09] MEDS ORDERED: CEPHALEXIN 500 MG CAP PO STA (14:13)
[2020-11-09] MEDS ORDERED: DIPH,PERTUS(ACELL)TETVAC-LF 0.5 ML VIAL IM ONE (14:13)
--- NOTE | 2020-11-09 14:39 | XR ---
EXAMINATION TYPE: XR foot complete RT DATE OF EXAM: 11/09/2020 COMPARISON: NONE HISTORY: Foot pain TECHNIQUE: 2 views FINDINGS: Metatarsals are intact. I see no fracture nor dislocation. Joint spaces are normal. IMPRESSION: Negative right foot exam.
--- NOTE | 2020-11-09 15:33 | ED ---
Wound/Laceration HPI - General Chief Complaint: Wound/Laceration Stated Complaint: rt foot lac Time Seen by Provider: 11/09/20 14:08 Source: patient Mode of arrival: ambulatory Limitations: no limitations - History of Present Illness Initial Comments: Patient stepped on an object at home. She sustained a laceration. She has no weakness or paresthesias. She has no other injuries. - Related Data Previous Rx's Medication Instructions Recorded Amoxic-Pot Clav 500-125 mg 1 tab PO Q8H 10 Days tab 05/19/17 [Augmentin 500-125 mg] Azithromycin [Zithromax Z-pack (6 250 mg PO DIRECTED #6 tab 05/19/17 tabs)] Benzonatate [Tessalon Perles] 200 mg PO Q8H PRN #15 capsule 05/19/17 Cyclobenzaprine [Flexeril] 10 mg PO TID PRN 7 Days #21 tab 09/22/18 Cephalexin [Keflex] 500 mg PO Q12HR 1 Days #14 cap 11/09/20 Allergies Allergy/AdvReac Type Severity Reaction Status Date / Time bismuth subsalicylate Allergy Anaphylaxis Verified 11/09/20 14:00 [From Pepto-Bismol] codeine Allergy Anaphylaxis Verified 11/09/20 14:00 ibuprofen Allergy Anaphylaxis Verified 11/09/20 14:00 red dye Allergy Unknown Verified 11/09/20 14:00 Review of Systems ROS Statement: Those systems with pertinent positive or pertinent negative responses have been documented in the HPI. ROS Other: All systems not noted in ROS Statement are negative. Past Medical History Past Medical History: No Reported History History of Any Multi-Drug Resistant Organisms: None Reported Past Surgical History: No Surgical Hx Reported Past Anesthesia/Blood Transfusion Reactions: No Reported Reaction Past Psychological History: No Psychological Hx Reported Smoking Status: Former smoker Past Alcohol Use History: None Reported Past Drug Use History: Marijuana - Past Family History Father Family Medical History: No Reported History General Exam Limitations: no limitations Head exam: Present: atraumatic Extremities exam: Present: tenderness Neurological exam: Present: alert, oriented X3 Skin exam: Present: warm, dry, other (Abrasion bottom of right foot) Course Vital Signs 11/09/20 13:57 Temperature 99.0 F Pulse Rate 94 Respiratory 18 Rate Blood Pressure 125/70 O2 Sat by Pulse 98 Oximetry Medical Decision Making - Medical Decision Making Patient presents with an injury to the foot. X-rays are negative. She is neurovascularly intact. She is stable for discharge. Disposition Clinical Impression: Laceration Disposition: HOME SELF-CARE Condition: Good Instructions (If sedation given, give patient instructions): Abrasion (ED) Prescriptions: Cephalexin [Keflex] 500 mg PO Q12HR 1 Days #14 cap Is patient prescribed a controlled substance at d/c from ED?: No Referrals: None,Stated [Primary Care Provider] - 1-2 days
== END 2020-11-09 15:55 | disposition home or self-care (01) ==
LOC: EC 13:11
DX: S91.311A Laceration without foreign body, right foot, initial encounter (principal); Z23 Encounter for immunization; F12.90 Cannabis use, unspecified, uncomplicated; Z87.891 Personal history of nicotine dependence; W26.0XXA Contact with knife, initial encounter; Y92.009 Unspecified place in unspecified non-institutional (private) residence as the place of occurrence of the external cause
CPT/HCPCS: 90471; 90715; 99283

== ENCOUNTER 2021-06-14 08:03 | Emergency (ER) | payer OTHER ==
[2021-06-14 08:08] VITALS: RESP 18; TEMP 97.6
[2021-06-14] MEDS ORDERED: HYDROcodone/APAP 7.5-325MG 1 EACH TAB PO ONE (08:29)
--- NOTE | 2021-06-14 08:36 | ED ---
ENT HPI - General Chief complaint: Dental/Oral Stated complaint: dental infection Time Seen by Provider: 06/14/21 08:10 Source: patient, RN notes reviewed Mode of arrival: ambulatory Limitations: no limitations - History of Present Illness Initial comments: 26-year-old female presents emergency Department with chief complaint of dental pain. She had to the extraction performed on Tuesday at [facility]. Patient states that she developed some sores were now she has developed what appears infection her mouth. She is currently on amoxicillin. Helping. Patient denies any fevers or chills states that she still doesn't feel well. She is on Tylenol codeine and [place] for no relief of symptoms. Patient offers no other complaints. - Related Data Previous Rx's Medication Instructions Recorded Amoxic-Pot Clav 500-125 mg 1 tab PO Q8H 10 Days tab 05/19/17 [Augmentin 500-125 mg] Azithromycin [Zithromax Z-pack (6 250 mg PO DIRECTED #6 tab 05/19/17 tabs)] Benzonatate [Tessalon Perles] 200 mg PO Q8H PRN #15 capsule 05/19/17 Cyclobenzaprine [Flexeril] 10 mg PO TID PRN 7 Days #21 tab 09/22/18 Cephalexin [Keflex] 500 mg PO Q12HR 1 Days #14 cap 11/09/20 Chlorhexidine Gluconate [Peridex] 15 ml PO BID #473 ml 06/14/21 Clindamycin HCl 300 mg PO Q6HR #40 cap 06/14/21 HYDROcodone/APAP 5-325MG [[place] 5] 1 each PO Q6HR PRN #12 tab 06/14/21 Allergies Allergy/AdvReac Type Severity Reaction Status Date / Time bismuth subsalicylate Allergy Anaphylaxis Verified 06/14/21 08:08 [From Pepto-Bismol] codeine Allergy Anaphylaxis Verified 06/14/21 08:08 ibuprofen Allergy Anaphylaxis Verified 06/14/21 08:08 red dye Allergy Unknown Verified 06/14/21 08:08 Review of Systems ROS Statement: Those systems with pertinent positive or pertinent negative responses have been documented in the HPI. ROS Other: All systems not noted in ROS Statement are negative. Past Medical History Past Medical History: No Reported History History of Any Multi-Drug Resistant Organisms: None Reported Past Surgical History: No Surgical Hx Reported Past Anesthesia/Blood Transfusion Reactions: No Reported Reaction Past Psychological History: No Psychological Hx Reported Smoking Status: Former smoker Past Alcohol Use History: None Reported Past Drug Use History: Marijuana - Past Family History Father Family Medical History: No Reported History General Exam Limitations: no limitations General appearance: alert, in no apparent distress Head exam: Present: atraumatic, normocephalic, normal inspection Eye exam: Present: normal appearance, PERRL, EOMI. Absent: scleral icterus, conjunctival injection, periorbital swelling ENT exam: Present: mucous membranes moist. Absent: normal oropharynx (Left upper recent dental extraction, there are some aphthous ulcers on the vehicle closer region and some erythematous sore at the site of extraction) Neck exam: Present: normal inspection. Absent: tenderness, meningismus, lymphadenopathy Respiratory exam: Present: normal lung sounds bilaterally. Absent: respiratory distress, wheezes, rales, rhonchi, stridor Cardiovascular Exam: Present: regular rate, normal rhythm, normal heart sounds. Absent: systolic murmur, diastolic murmur, rubs, gallop, clicks Course Vital Signs 06/14/21 08:04 Temperature 97.6 F Pulse Rate 87 Respiratory 18 Rate Blood Pressure 132/88 O2 Sat by Pulse 100 Oximetry Medical Decision Making - Medical Decision Making Patient appears to have dental infection related to recent extraction, patient does have some aphthous ulcers complicating the area. Patient was placed on Peridex, clindamycin patient will follow-up tomorrow with the dentist and return for any worsening change in symptoms. Disposition Clinical Impression: Aphthous ulcer, Dental infection Disposition: HOME SELF-CARE Condition: Stable Instructions (If sedation given, give patient instructions): Dental Abscess (ED) Additional Instructions: Please return to the Emergency Department if symptoms worsen or any other concerns. Prescriptions: Clindamycin HCl 300 mg PO Q6HR #40 cap HYDROcodone/APAP 5-325MG [[place] 5] 1 each PO Q6HR PRN #12 tab PRN Reason: Pain Chlorhexidine Gluconate [Peridex] 15 ml PO BID #473 ml Is patient prescribed a controlled substance at d/c from ED?: Yes When asked, does pt state using other controlled substances?: No If prescribed controlled substance>3 days was MAPS reviewed?: Prescribed <3 Days If opioid is for acute pain is fill amount 7 days or less?: Yes If Rx opioid, was Start Talking consent form obtained?: Yes Referrals: None,Stated [Primary Care Provider] - 1-2 days Time of Disposition: 08:35
[2021-06-14 08:55] VITALS: BP 111/74; PULSE 72
== END 2021-06-14 08:55 | disposition home or self-care (01) ==
LOC: EC 08:03
DX: K04.7 Periapical abscess without sinus (principal); K12.0 Recurrent oral aphthae; F12.90 Cannabis use, unspecified, uncomplicated; Z87.891 Personal history of nicotine dependence
CPT/HCPCS: 99282

== ENCOUNTER 2021-06-22 19:34 | Inpatient (IN) | payer OTHER ==
[2021-06-22] MEDS ORDERED: MORPHINE SULFATE 4 MG/ML SYRINGE IM STA (22:24)
[2021-06-22] MEDS ORDERED: CEFEPIME 2 GM in SODIUM CHLORIDE 0.9% 50 ML IVPB STA (22:31)
[2021-06-22] MEDS ORDERED: CEFEPIME 2 GM in SODIUM CHLORIDE 0.9% 100 ML IVPB STA (22:37)
--- NOTE | 2021-06-22 23:20 | ED ---
ENT HPI - General Chief complaint: ENT Stated complaint: Left Ear infection, Swelling face and behind ear Time Seen by Provider: 06/22/21 22:03 Source: patient Mode of arrival: ambulatory - History of Present Illness Initial comments: Patient's 26-year-old female presents to the emergency department for worsening ear pain. Patient had left ear evaluated at an urgent care yesterday where she was diagnosed with otitis externa and given ciprofloxacin drops. Patient presented in our emergency department this morning due to increased ear pain. Her external ear canal was found to be very edematous and a wick was placed without issue. Patient presents today reporting severe ear pain. She states she believes the wick has fallen out of her ear therefore she has not applied a ny of the ear drops since her dose in the emergency department. Patient states the pain has traveled behind her ear and in her jaw. She denies throat pain or swelling. She reports intermittent chills. - Related Data Home Medications Medication Instructions Recorded Confirmed Cephalexin [Keflex] 500 mg PO TID 06/22/21 06/22/21 Ciprofloxacin-Dexameth [Ciprodex 4 drops LEFT EAR BID 06/22/21 06/22/21 Otic Susp] Previous Rx's Medication Instructions Recorded Chlorhexidine Gluconate [Peridex] 15 ml PO BID #473 ml 06/14/21 Allergies Allergy/AdvReac Type Severity Reaction Status Date / Time bismuth subsalicylate Allergy Anaphylaxis Verified 06/22/21 23:27 [From Pepto-Bismol] red dye Allergy Unknown Verified 06/22/21 23:27 Review of Systems ROS Statement: Those systems with pertinent positive or pertinent negative responses have been documented in the HPI. ROS Other: All systems not noted in ROS Statement are negative. Past Medical History Past Medical History: No Reported History History of Any Multi-Drug Resistant Organisms: None Reported Past Surgical History: No Surgical Hx Reported Past Anesthesia/Blood Transfusion Reactions: No Reported Reaction Past Psychological History: No Psychological Hx Reported Smoking Status: Current every day smoker Past Alcohol Use History: None Reported Past Drug Use History: Marijuana - Past Family History Father Family Medical History: No Reported History General Exam General appearance: alert, in distress (Due to pain) Head exam: Present: atraumatic, normocephalic, normal inspection Eye exam: Present: normal appearance, PERRL, EOMI ENT exam: Present: normal oropharynx, other (Edematous and erythematous left ear canal with drainage. No overlying skin changes over the mastoid or mandible. Tenderness over mastoid and upper mandible inferior to left ear ). Absent: TM's normal bilaterally, normal external ear exam Neck exam: Present: normal inspection, full ROM. Absent: tenderness, lymphadenopathy Respiratory exam: Present: normal lung sounds bilaterally. Absent: respiratory distress, wheezes, rales, rhonchi, stridor Cardiovascular Exam: Present: normal rhythm, tachycardia. Absent: normal heart sounds, systolic murmur, diastolic murmur, rubs, gallop GI/Abdominal exam: Present: soft, normal bowel sounds. Absent: distended, tenderness, guarding, rebound, rigid Neurological exam: Present: alert, oriented X3, CN II-XII intact Psychiatric exam: Present: normal affect, anxious Skin exam: Present: warm, dry, intact, normal color. Absent: rash Course Vital Signs 06/22/21 20:42 Temperature 100.0 F H Pulse Rate 120 H Respiratory 18 Rate Blood Pressure 129/84 O2 Sat by Pulse 100 Oximetry Medical Decision Making - Medical Decision Making This is a 26-year-old female who presents with worsening left ear pain. Thorough history and examination were performed. Patient is febrile at 100F and tachycardic at 120. She appears to be in significant pain. She had wick placement in our emergency department this morning. The wick is no longer in the ear. The external ear canal is edematous and erythematous with drainage. The tympanic membrane cannot be visualized due to drainage and edema. No overlying skin changes over the mastoid or mandible however there is mastoid tenderness and significant tenderness of the maxilla just beneath the ear. Laboratory josie dies and internal auditory canal CT will be obtained due to concern for mastoiditis. IV cefepime and pain control was initiated. Laboratory studies significant for elevated white count at 14.2. CT shows increased density in the left external auditory canal consistent with otitis externa and minimal mucosal thickening in the left side mastoid air cells consistent with some mild mastoiditis. There was also minimal mucosal thickening in the epi tympanic recess on the left side consistent with mild otitis interna. Patient admitted with ENT consult for further IV antibiotics and management. She was admitted in stable condition. Dr. Brothers is my attending. - Lab Data Result diagrams: 06/25/21 06:03 06/26/21 05:21 Disposition Clinical Impression: Acute infective otitis externa, Otitis interna, Mastoiditis Disposition: ADMITTED IP TO THIS HOSP
--- NOTE | 2021-06-22 23:41 | CT ---
EXAMINATION TYPE: CT iac wo con DATE OF EXAM: 06/22/2021 COMPARISON: None HISTORY: Ear pain CT DLP: mGycm Automated exposure control for dose reduction was used. Images obtained from the top of the orbits to the skull base without contrast. There is some mild mucosal thickening in the left side mastoid air cells. Temporal bones are intact. External auditory canals show significant increased density on the left side. There is occlusion of t he lumen on the left side. There is mucosal thickening left maxillary sinus. Maxilla is intact. The t emporomandibular joints are intact. There is opacification seen in the left external auditory canal u p to the tympanic membrane. There is some mild mucosal thickening in the epitympanic recess on the le ft side. No focal bone destruction seen. IMPRESSION: There is increased density in the left external auditory canal consistent with otitis externa. There is minimal mucosal thickening in the left side mastoid air cells consistent with some mild mastoiditi s. Minimal mucosal thickening in the epitympanic recess on the left side consistent with mild otitis int nohemy.
[2021-06-22] MEDS ORDERED: SODIUM CHLORIDE 0.9% 1,000 ML IV ONE (23:45)
[2021-06-22] MEDS ORDERED: MORPHINE SULFATE 4 MG/ML SYRINGE IVP STA (23:52)
[2021-06-23] MEDS ORDERED: NALOXONE 0.4 MG/ML 1 ML VIAL IV PRN (00:11)
[2021-06-23] MEDS ORDERED: VANCOMYCIN IV PER PHARMACY 1 EACH MISC MISCELLANE PRN (00:14)
[2021-06-23 00:59] LABS: Basophils # (A) 0.1 k/uL (0-0.2); Basophils % (A) 0 %; Eosinophils # (A) 0.1 k/uL (0-0.7); Eosinophils % (A) 0 %; HCT 37.7 % (34.0-46.0); Lymphocytes # (A) 1.8 k/uL (1.0-4.8); Lymphocytes % (A) 12 %; MCHC 31.7 g/dL (31.0-37.0); MCV 94.4 fL (80.0-100.0); Mean Platelet Volume 9.1; Monocytes # (A) 1.2 k/uL (0-1.0); Monocytes % (A) 9 %; Neutrophils # (A) 10.9 k/uL (1.3-7.7); Neutrophils % (A) 77 %; Platelet Count 237 k/uL (150-450); RBC 3.99 m/uL (3.80-5.40); RDW 12.6 % (11.5-15.5); WBC 14.2 k/uL (3.8-10.6)
[2021-06-23] MEDS ORDERED: VANCOMYCIN 1,000 MG in SODIUM CHLORIDE 0.9% 250 ML IVPB ONE (01:00)
[2021-06-23 01:10] LABS: ALT 21 U/L (4-34); AST 21 U/L (14-36); African American GFR (CKD) >90 (>60 ml/min/1.73 sqM); Albumin 4.4 g/dL (3.5-5.0); Alkaline Phosphatase 77 U/L (38-126); Anion Gap 11 mmol/L; Blood Urea Nitrogen 7 mg/dL (7-17); Calcium 9.3 mg/dL (8.4-10.2); Carbon Dioxide 23 mmol/L (22-30); Chloride 101 mmol/L (98-107); Glucose 93 mg/dL (74-99); Non-African American GFR(CKD) >90 (>60 ml/min/1.73 sqM); Potassium 3.8 mmol/L (3.5-5.1); Sodium 135 mmol/L (137-145); Total Bilirubin 1.1 mg/dL (0.2-1.3); Total Protein 7.7 g/dL (6.3-8.2)
[2021-06-23] MEDS: SODIUM CHLORIDE 0.9% 1,000 ML IV SCH ×3 (01:12→15:28)
[2021-06-23] MEDS: HYDROmorphone 0.5 MG/0.5 ML SYRINGE IVP PRN ×6 (01:14→20:38)
[2021-06-23] MEDS: ACETAMINOPHEN TAB 325 MG TAB PO PRN ×2 (01:17→07:38)
--- NOTE | 2021-06-23 02:43 | P.HPIM ---
History of Present Illness H&P Date: 06/23/21 Patient is a 26-year-old female with no known PMH who presented to the emergency room with complaints of left ear and tooth pain. The patient reported that her symptoms started roughly a week ago with initial dull ache in the left ear. The pain gradually worsened, and she was subsequently seen at urgent care center 2 days ago, and was prescribed a antibiotic eardrops. She was then seen in the e mergency room for worsening symptoms and was started on oral Keflex, which provided little relief, thereby the patient is presenting to the emergency room again.she reports 10 out of 10 left ear pain with drainage as well as left upper molar pain. Denies any history of ear infections in the past. Reports being diagnosed with COVID 19 one week ago however denied experiencing shortness of breath, cough. Does report fevers over the past 3 days. Denies chest pain, shortness of breath, nausea, vomiting, abdominal pain, diarrhea. A CT of the internal auditory canal without contrast revealed findings consistent with left otitis externa, mild mastoiditis, along with mild otitis externa. Laboratory evaluation revealed leukocytosis of 14.2, sodium 135, lactic acid 1.3. The patient was started on IV vancomycin and cefepime and is being admitted for ENT evaluation Review of systems: Pertinent positives and negatives as discussed in HPI, a complete review of systems was performed and all other systems are negative. Physical examination: General: non toxic, mild to moderate distress from pain, appears at stated age, overweight Derm: no unusual rashes/lesions no unusual ecchymoses, warm, dry Head: atraumatic, normocephalic, symmetric Eyes: EOMI, no lid lag, anicteric sclera, pupils equal round reactive to light ENT: Nose and ears atraumatic, no thrush, no pharyngeal erythema, left ear erythema with swelling of the canal and purulent drainage Neck: No thyromegaly, no cervical lymphadenopathy, trachea midline, supple Mouth: no lip lesion, mucus membranes moist, refusing to open mouth fully due to left tooth pain Cardiovascular: S1S2 reg, no murmur, positive posterior tibial pulse bilateral, no edema, capillary refill less than 2 seconds Lungs: CTA bilateral, no rhonchi, no rales , no accessory muscle use Abdominal: soft, nontender to palpation, no guarding, no appreciable organomegaly, normal bowel sounds Ext: no gross muscle atrophy, muscle strength 5 out of 5 in all 4 extremities grossly, no contractures, Neuro: CN II-XI grossly intact, light touch intact all 4 extremities, finger to nose within normal limits, Psych: Alert, oriented, appropriate affect Assessment/plan Sepsis secondary to otitis externa, complicated by mastoiditis -Continue with vancomycin and cefepime -ENT consulted -IV fluids -Pain control COVID 19 positive -Patient denying cough or shortness of breath -Obtain repeat PCR DVT prophylaxis -Heparin subcu The patient is admitted with an anticipated greater than 2 midnight stay for evaluation of sepsis secondary to otitis externa. CODE STATUS: Full code Discussed with: Patient Anticipated discharge date: 06/[address]: Home Past Medical History Past Medical History: No Reported History History of Any Multi-Drug Resistant Organisms: None Reported Past Surgical History: No Surgical Hx Reported Past Anesthesia/Blood Transfusion Reactions: No Reported Reaction Past Psychological History: No Psychological Hx Reported Smoking Status: Former smoker Past Alcohol Use History: None Reported Additional Past Alcohol Use History / Comment(s): states she quit two weeks ago Past Drug Use History: Marijuana - Past Family History Father Family Medical History: No Reported History Medications and Allergies Home Medications Medication Instructions Recorded Confirmed Type Chlorhexidine Gluconate [Peridex] 15 ml PO BID #473 ml 06/14/21 06/22/21 Rx Cephalexin [Keflex] 500 mg PO TID 06/22/21 06/22/21 History Ciprofloxacin-Dexameth [Ciprodex 4 drops LEFT EAR BID 06/22/21 06/22/21 History Otic Susp] Allergies Allergy/AdvReac Type Severity Reaction Status Date / Time bismuth subsalicylate Allergy Anaphylaxis Verified 06/22/21 23:27 [From Pepto-Bismol] red dye Allergy Unknown Verified 06/22/21 23:27 Physical Exam Vitals: Vital Signs Temp Pulse Pulse Resp BP BP Pulse Ox 06/23/21 01:06 98.6 F 123 H 18 136/78 100 06/22/21 20:42 100.0 F H 120 H 18 129/84 100 Intake and Output 06/22/21 06/22/21 06/23/21 14:59 22:59 06:59 Other: Weight 68.039 kg 68.039 kg Results CBC & Chem 7: 06/23/21 00:29 06/23/21 00:29 Labs: Abnormal Lab Results - Last 24 Hours (Table) 06/23/21 06/23/21 Range/Units 00: 00:29 WBC 14.2 H (3.8-10.6) k/uL Neutrophils # 10.9 H (1.3-7.7) k/uL Monocytes # 1.2 H (0-1.0) k/uL Sodium 135 L (137-145) mmol/L Thrombosis Risk Factor Assmnt - Choose All That Apply Any of the Below Risk Factors Present?: Yes Each Factor Represents 1 point: Obesity (BMI >25) Other Risk Factors: No Thrombosis Risk Factor Assessment Total Risk Factor Score: 1 Thrombosis Risk Factor Assessment Level: Low Risk
[2021-06-23] MEDS: CEFEPIME 2 GM in SODIUM CHLORIDE 0.9% 100 ML IVPB SCH ×2 (07:40→16:03)
[2021-06-23] MEDS: ONDANSETRON 4 MG/2 ML VIAL IVP PRN ×2 (10:07→20:43)
[2021-06-23] MEDS: KETOROLAC 15 MG/ML 1 ML VIAL IVP SCH ×2 (10:25→18:09)
[2021-06-23] MEDS: VANCOMYCIN 1,250 MG in SODIUM CHLORIDE 0.9% 250 ML IVPB SCH ×2 (11:30→18:28)
[2021-06-23] MEDS ORDERED: KETOROLAC 15 MG/ML 1 ML VIAL IVP SCH (12:00)
[2021-06-23] MEDS: CIPROFLOXACIN-DEXAMETH 0.3-0.1% DROPS 7.5 ML BTL LEFT EAR SCH ×2 (12:49→20:50)
--- NOTE | 2021-06-23 13:17 | P.PN ---
Subjective Progress Note Date: 06/23/21 Hospital course: Patient is a very pleasant 26-year-old female whom was recently diagnosed with Covid 19 virus infection one week ago and presented to the emergency department with a chief complaint of left ear and jaw pain. She underwent full evaluation in the emergency department and was found to have leukocytosis with WBC count of 14.2, oral temperature 100.0F, and tachycardia with heart rate 120s. Covid [address] internal auditory canal without contrast was consistent with otitis externa, otitis interna and mild mastoiditis. Patient was started on cefepime and vancomycin and admitted under our services with consultation to ENT. Physical exam: Patient seen and fully evaluated at bedside this morning. Patient reports continued 10 out of 10 pain to left ear. Order placed for scheduled Toradol 15 mg IVP every 6 hours and RN notified of patient's need for hot packs/heating pad to be used in assisting with control of pain. In addition patient reports fee ling nauseous with 1 episode of vomiting and an order was placed for Zofran. Patient denies having any other pain or complaints at this time including headache, lightheadedness, dizziness, sore throat, dysphasia, chest pain, palpitations, or abdominal pain. Vital signs reviewed and stable. General: Nontoxic, no distress and appears stated age. Derm: Skin warm and dry, normal coloration for ethnicity. Head: Atraumatic, normocephalic and symmetric. Eyes: EOMs intact, no lid lag, and anicteric sclera. Ears: Left ear with swelling of auricle and significant edema and erythema closing off visualization of auditory canal, no drainage noted at this time. Positive tenderness upon palpation of the mastoid. Mouth: no lip lesions, mucus membranes moist Cardiovascular: regular rate and rhythm with normal S1S2, no murmur, positive posterior tibial pulses bilaterally, and cap refill < 2 seconds. Lungs: Respirations even, regular, and unlabored on room air. Lungs CTA bilaterally, no rhonchi, no rales, no wheezing, and no accessory muscle usage. Abdominal: soft, nontender to palpation, no guarding, no appreciable organomegaly Ext: ROM intact. No gross muscle atrophy, no edema, no contractures Neuro: Speech clear, face symmetrical and CN II-XII grossly intact with no noted focal neuro deficits Psych: Alert and oriented to person, place, time, and situation. Appropriate and pleasant affect. Assessment and Plan of Care: Sepsis secondary to otitis externa, otitis media and complicated by mastoiditis -Continue with vancomycin and cefepime -ENT consulted -IV fluids -Pain control Recent COVID infection -Patient denying cough or shortness of breath -Repeat PCR negative CODE STATUS: Full code DVT prophylaxis: Heparin Discussed with: Patient and RN Anticipated discharge date: Clinical course to determine Anticipated discharge place: Home A total of 34 minutes was spent on the care of this complex patient more than 50% of the time was spent in counseling and care coordination. I reviewed the documentation as provided by the PAULINE above, who is the original author of this note. I agree with the documented assessment and plan, with the following changes: none Objective - Vital Signs Vital signs: Vital Signs Temp 98.5 F 06/23/21 05:13 Pulse 109 H 06/23/21 05:13 Resp 16 06/23/21 05:13 BP 124/80 06/23/21 05:13 Pulse Ox 96 06/23/21 05:13 Intake & Output 06/22/21 06/23/21 06/23/21 18:59 06:59 18:59 Weight 68.039 kg Other: # Voids 1 # Bowel Movements 0 - Labs CBC & Chem 7: 06/23/21 00:29 06/24/21 09:11 Labs: Abnormal Lab Results - Last 24 Hours (Table) 06/23/21 06/23/21 Range/Units 00:29 00:29 WBC 14.2 H (3.8-10.6) k/uL Neutrophils # 10.9 H (1.3-7.7) k/uL Monocytes # 1.2 H (0-1.0) k/uL Sodium 135 L (137-145) mmol/L
[2021-06-23] MEDS: ACETAMINOPHEN IV (For NPO) 1,000 MG in EMPTY BAG 1 BAG IVPB SCH (16:03)
[2021-06-23] MEDS: DEXAMETHASONE SOD PHOSPHATE 10 MG/ML 1 ML VIAL IVP SCH ×2 (16:04→20:46)
[2021-06-23] MEDS: HEPARIN SODIUM,PORCINE/PF 5,000 UNIT/0.5 ML SYRINGE SQ SCH (16:04)
[2021-06-24] MEDS: CEFEPIME 2 GM in SODIUM CHLORIDE 0.9% 100 ML IVPB SCH ×3 (00:08→17:21)
[2021-06-24] MEDS: ACETAMINOPHEN IV (For NPO) 1,000 MG in EMPTY BAG 1 BAG IVPB SCH ×3 (00:08→11:18)
[2021-06-24] MEDS: KETOROLAC 15 MG/ML 1 ML VIAL IVP SCH ×4 (00:10→17:24)
[2021-06-24] MEDS: HEPARIN SODIUM,PORCINE/PF 5,000 UNIT/0.5 ML SYRINGE SQ SCH ×4 (00:22→23:47)
[2021-06-24] MEDS: SODIUM CHLORIDE 0.9% 1,000 ML IV SCH ×4 (00:23→22:05)
[2021-06-24] MEDS: VANCOMYCIN 1,250 MG in SODIUM CHLORIDE 0.9% 250 ML IVPB SCH ×3 (01:13→17:31)
[2021-06-24] MEDS: ONDANSETRON 4 MG/2 ML VIAL IVP PRN (05:25)
[2021-06-24] MEDS: HYDROmorphone 0.5 MG/0.5 ML SYRINGE IVP PRN ×3 (05:26→17:27)
--- NOTE | 2021-06-24 08:45 | CONS ---
CONSULTATION DATE OF CONSULTATION: 06/23/2021 REASON FOR CONSULTATION: Severe left ear infection, possible left mastoiditis. HISTORY OF PRESENT ILLNESS: The patient is a very pleasant 26-year-old female who was admitted to via the emergency room department. The patient states that approximately a week prior to admission she developed pain in her left ear. After a couple of days the pain became quite severe, and initially the patient was seen at one of the urgent care centers. She was placed on oral antibiotics and sent home. After an additional couple of days, the pain got worse despite her taking the antibiotics and she presented at [facility] Emergency Room Department. She was evaluated by a physician there, who felt that she had a severe left external ear infection. He placed a Garland wick in the left ear and the patient was discharged from the emergency room department on antibiotic ear drops, Ciprodex.S was advised to complete the oral antibiotics that the urgent care center had prescribed. After approximately 24 hours, the patient states that the wick came out and the pain became quite severe and radiated down into her left jaw and neck. She returned to [facility] Emergency Room Department, and at that time it was noted that the patient's left ear canal was completely swollen shut. A CT scan of the IACs revealed evidence of left external otitis and mild left mastoiditis with no coalescence or opacification or fluid in the mastoid air cells. At the time I saw the patient in her room, she was having significant pain in her left ear. She admits to using Q-Tips to clean her ears and I advised to stop for obvious reasons. Frequent cleansing of ears with Q-Tips is a common cause of patients developing what used to be called swimmer's ear. The process is started by the patient removing the body's natural defenses, namely the cerumen, which is germicidal. I advised the patient not to use Q-tips, peroxide or alcohol to clean her ears and instructed her in the proper way to clean her ears. She denies any previous history of having ear infections. She also denied any itching in the ears. She denies double vision or severe headache. PAST MEDICAL HISTORY: She has ALLERGIES TO BISMUTH, which is commonly found commonly found in [place]- BISMOL and she is also allergic to RED DYE. She smokes less than a pack of cigarettes per day and has been advised to quit for obvious health reasons. Her home medications include Peridex. The review of systems is essentially unremarkable. PHYSICAL EXAMINATION: The patient is a 26-year-old female who is alert and cooperative. HEENT EXAMINATION: Patient is normocephalic. Examination of right ear reveals the right canal is free of any wax or debris. The skin is quite dry and scaly but not erythematous. There is no tenderness to insertion of the speculum. There is no tragal tenderness. The right tympanic membrane and right middle ear space is free of any fluid or infection. Palpation of the right postauricular area is negative for any tenderness, as is palpation of the right auricle. Examination of the left ear reveals that the patient's left auricle/pinnae is tender to palpation and insertion of the aural speculum. There is mild tenderness in the left postauricular area, but there is no swelling or fluctuance, which would be expected with a true mastoiditis. Pressure on the tragus elicits severe pain. Examination of the left ear with the otoscope reveals that the left canal is extremely swollen. There is purulent material draining from the left ear and the left tympanic membrane is not visible. Palpation of the anterior of the left facial/parotid area is negative for any fluctuance or significant tenderness. Palpation of the neck is negative for any neck mass or lymphadenopathy. Pupils are equal, round and reactive to light and accommodation. Extraocular movements are within normal limits. Intranasal examination reveals moderate septal deviation with compensatory hypertrophy of the inferior turbinates bilaterally and a slight amount of clear mucus on the mucous membranes and draining down the posterior pharynx. Examination of the oropharynx, cranial nerves 2 through 12 and the remainder of the head and neck exam is unremarkable. CHEST/CARDIOVASCULAR: Both lung armijo are clear to percussion and auscultation. The patient is in regular sinus rhythm. S1 and S2 are present without evidence of any murmurs. Peripheral pulses are bilaterally symmetrical. ABDOMEN: There is no evidence no evidence any masses, megaly or tenderness. The abdomen is soft. SKIN: Unremarkable. The remainder of the physical exam is essentially unremarkable. IMPRESSION: 1. Left external otitis (so-called swimmer's ear). 2. Incidental finding of mild left mastoiditis. I inserted a Garland wick into the patient's left ear and inflated it with Ciprodex suspension. I advised the patient that this will generally fall out once the swelling goes down. I may change this wick tomorrow or I may not, depending upon the patient's condition. Certainly this should allow the antibiotic ear drops to penetrate the ear canal and come in contact with the skin and help resolve the infection. I reviewed the patient's CT scan of IACs and I am not impressed with the mastoid findings. That is to say, I do not feel that the patient has acute mastoiditis despite these findings. The pain that she is having in the ear and in the postauricular area is most likely radiating from the infection in her left ear canal. It is not unusual for this pain to radiate down into the neck. If left untreated, the inflammation will gradually begin to spread anteriorly towards the left parotid area. The patient is currently on intravenous antibiotics, vancomycin and cefepime, and I feel that these should be continued. I am going to add Ciprodex 4 drops in the left ear t.i.d. I will also give the patient a short burst of dexamethasone 10 mg IV b.i.d. followed by 5 mg IV b.i.d., then stop. I will see the patient tomorrow, and after examining her at that time I will advise. This disorder is very common in patients who use Q-tips frequently; again it is a result of removing the body's natural defenses against infections, namely the cerumen. Most of the bacteria in the external auditory canal are held in check by the cerumen, including pseudomonas. I want to take this opportunity to thank you for allowing me to assist in the care of this patient. I will follow her with you. If I can be of any further assistance, please feel free to call my office. MMODL / IJN: [id number] / JOYA
[2021-06-24] MEDS ORDERED: VANCOMYCIN TROUGH DUE 1 EACH MISC MISCELLANE ONE (09:00)
[2021-06-24] MEDS: DEXAMETHASONE SOD PHOSPHATE 4 MG/ML 1 ML VIAL IVP SCH ×2 (09:12→22:13)
[2021-06-24] MEDS: CIPROFLOXACIN-DEXAMETH 0.3-0.1% DROPS 7.5 ML BTL LEFT EAR SCH ×3 (09:20→22:04)
[2021-06-24 09:41] LABS: African American GFR (CKD) >90 (>60 ml/min/1.73 sqM); Non-African American GFR(CKD) >90 (>60 ml/min/1.73 sqM)
--- NOTE | 2021-06-24 15:06 | P.PN ---
Subjective Progress Note Date: 06/24/21 Hospital course: Patient is a very pleasant 26-year-old female whom was recently diagnosed with Covid 19 virus infection one week ago and presented to the emergency department with a chief complaint of left ear and jaw pain. She underwent full evaluation in the emergency department and was found to have leukocytosis with WBC count of 14.2, oral temperature 100.0F, and tachycardia with heart rate 120s. Covid [address] internal auditory canal without contrast was consistent with otitis externa, otitis interna and mild mastoiditis. Patient was started on cefepime and vancomycin and admitted under our services with consultation to ENT. Physical exam: Patient seen and fully evaluated at bedside this morning. Patient reports continued 10 out of 10 pain to left ear. Order placed for scheduled Toradol 15 mg IVP every 6 hours and RN notified of patient's need for hot packs/heating pad to be used in assisting with control of pain. In addition patient reports fee ling nauseous with 1 episode of vomiting and an order was placed for Zofran. Patient denies having any other pain or complaints at this time including headache, lightheadedness, dizziness, sore throat, dysphasia, chest pain, palpitations, or abdominal pain. Vital signs reviewed and stable. General: Nontoxic, no distress and appears stated age. Derm: Skin warm and dry, normal coloration for ethnicity. Head: Atraumatic, normocephalic and symmetric. Eyes: EOMs intact, no lid lag, and anicteric sclera. Ears: Left ear with swelling of auricle and significant edema and erythema closing off visualization of auditory canal, no drainage noted at this time. Positive tenderness upon palpation of the mastoid. Mouth: no lip lesions, mucus membranes moist Cardiovascular: regular rate and rhythm with normal S1S2, no murmur, positive posterior tibial pulses bilaterally, and cap refill < 2 seconds. Lungs: Respirations even, regular, and unlabored on room air. Lungs CTA bilaterally, no rhonchi, no rales, no wheezing, and no accessory muscle usage. Abdominal: soft, nontender to palpation, no guarding, no appreciable organomegaly Ext: ROM intact. No gross muscle atrophy, no edema, no contractures Neuro: Speech clear, face symmetrical and CN II-XII grossly intact with no noted focal neuro deficits Psych: Alert and oriented to person, place, time, and situation. Appropriate and pleasant affect. Assessment and Plan of Care: Sepsis secondary to otitis externa, otitis media and complicated by mastoiditis -Continue with vancomycin and cefepime -ENT consulted, placed ear wick in left ear canal and started patient on Ciprodex 4 drops in left ear 3 times daily and Decadron -IV fluids -Pain control Recent COVID infection -Patient denying cough or shortness of breath -Repeat PCR negative CODE STATUS: Full code DVT prophylaxis: Heparin Discussed with: Patient and RN Anticipated discharge date: Clinical course to determine Anticipated discharge place: Home A total of 34 minutes was spent on the care of this complex patient more than 50% of the time was spent in counseling and care coordination. I reviewed the documentation as provided by the PAULINE above, who is the original author of this note. I agree with the documented assessment and plan, with the following changes: none Objective - Vital Signs Vital signs: Vital Signs Temp 99.1 F 06/24/21 05:13 Pulse 89 06/24/21 05:13 Resp 18 06/24/21 05:13 BP 118/79 06/24/21 05:13 Pulse Ox 99 06/24/21 05:13 Intake & Output 06/23/21 06/24/21 06/24/21 18:59 06:59 18:59 Intake Total 850 400 Balance 850 400 Intake: Intake, IV Titration 250 Amount ACETAMINOPHEN IV (For NPO 250 ) 1,000 mg In Empty Bag 1 bag @ 400 mls/hr IVPB Q6H [facility] Rx#:[id number] Oral 600 400 Other: # Voids 2 - Labs CBC & Chem 7: 06/23/21 00:29 06/24/21 09:11 Labs: Microbiology - Last 24 Hours (Table) 06/23/21 00:00 Blood Culture - Preliminary Blood No Growth after 24 hours 06/23/21 00:15 Blood Culture - Preliminary Blood No Growth after 24 hours
[2021-06-24] MEDS: IBUPROFEN 400 MG TAB PO PRN (22:21)
[2021-06-25] MEDS: KETOROLAC 15 MG/ML 1 ML VIAL IVP SCH ×4 (00:03→17:32)
[2021-06-25] MEDS: CEFEPIME 2 GM in SODIUM CHLORIDE 0.9% 100 ML IVPB SCH ×3 (00:05→15:58)
[2021-06-25] MEDS: VANCOMYCIN 1,250 MG in SODIUM CHLORIDE 0.9% 250 ML IVPB SCH ×3 (03:13→17:36)
[2021-06-25] MEDS: SODIUM CHLORIDE 0.9% 1,000 ML IV SCH ×2 (05:56→13:33)
[2021-06-25 09:18] LABS: HCT 33.5 % (37.2-46.3); HGB 10.4 g/dL (12.0-15.0); MCH 29.7 pg (27.0-32.0); MCV 95.7 fL (80.0-97.0); Mean Platelet Volume 12.9 fL (9.5-12.2); NRBC Per 100 WBC 0 /100 WBCS (0.0-0.0); Platelet Count 244 X 10*3/uL (140-440); RDW 12.9 % (11.5-14.5)
[2021-06-25] MEDS: HEPARIN SODIUM,PORCINE/PF 5,000 UNIT/0.5 ML SYRINGE SQ SCH ×2 (09:23→15:59)
[2021-06-25] MEDS: CIPROFLOXACIN-DEXAMETH 0.3-0.1% DROPS 7.5 ML BTL LEFT EAR SCH ×3 (09:23→20:01)
--- NOTE | 2021-06-25 09:36 | PN ---
PROGRESS NOTE SUBJECTIVE: Vital signs stable. Patient is afebrile. The patient states that the left ear feels better, although she is presently having a headache. OBJECTIVE: Examination of the left ear reveals palpation of the tragus, reveals a significant decrease in the tenderness of the tragus, the auricle/pinna and in the postauricular area. I do not detect any significant swelling in the left face or parotid area. The previously inserted Garland wick was removed. It was noted that the canal swelling has reduced by approximately 50%. I am able to see the left tympanic membrane. I do not see evidence of any perforation or middle ear infection. There is still a significant amount of purulent material originating from the external auditory canal. A fresh Garland wick was inserted and was inflated with Ciprodex otic suspension. The remainder of the head and neck exam and physical exam is unchanged since last visit. ASSESSMENT: Severe left external otitis, no evidence of true acute mastoiditis. PLAN: Continue with present regimen of antibiotics, etc. I have advised the patient that I will see her tomorrow on 06/25/2021. At that time I will remove the Garland wick and inspect the ear. If the patient's symptoms have improved as significantly as they have today, then the patient could be discharged to home tomorrow AFTER I see her. Please do not discharge this patient to home before I see her. 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 MMODL / IJN: [id number] /
[2021-06-25 09:48] LABS: African American GFR (CKD) 147.9 (60.0-200.0); BUN/Creat Ratio 17.67 Ratio (12.00-20.00); Blood Urea Nitrogen 10.6 mg/dL (9.0-27.0); Calcium 8.9 mg/dL (8.7-10.3); Non-African American GFR(CKD) 127.6 (60.0-200.0); Potassium 4.3 mmol/L (3.5-5.5)
[2021-06-25 13:09] VITALS: RESP 16
[2021-06-25] MEDS: IBUPROFEN 400 MG TAB PO PRN ×2 (13:29→19:59)
--- NOTE | 2021-06-25 16:34 | P.PN ---
Subjective Progress Note Date: 06/25/21 Hospital course: Patient is a very pleasant 26-year-old female whom was recently diagnosed with Covid 19 virus infection one week ago and presented to the emergency department with a chief complaint of left ear and jaw pain. She underwent full evaluation in the emergency department and was found to have leukocytosis with WBC count of 14.2, oral temperature 100.0F, and tachycardia with heart rate 120s. Covid [address] internal auditory canal without contrast was consistent with otitis externa, otitis interna and mild mastoiditis. Patient was started on cefepime and vancomycin and admitted under our services with consultation to ENT. Physical exam: Patient seen and fully evaluated at bedside this morning. Patient reports she began feeling better yesterday evening but reports overnight and this morning her pain is back up to 9 out of 10. Upon evaluation patient has had significant improvement in erythema and edema of the left external ear and canal as well as improvement to swelling of the left side of her face, neck and jaw. Patient does report experiencing a couple episodes of diarrhea and to be started on probiotics at this time. She denies any further episodes of vomiting. Patient denies having any other pain or complaints at this time including headache, lightheadedness, dizziness, sore throat, dysphasia, chest pain, palpitations, or abdominal pain. Patient is tolerating oral intake, IV fluids discontinued at this time. Patient to continue with antibiotic regimen with Unasyn, vancomycin, and Ciprodex eardrops. Vital signs reviewed and stable. General: Nontoxic, no distress and appears stated age. Derm: Skin warm and dry, normal coloration for ethnicity. Head: Atraumatic, normocephalic and symmetric. Eyes: EOMs intact, no lid lag, and anicteric sclera. Ears: Left ear with minimal swelling this morning. Continues to report mild tenderness upon palpation. Erythema and edema of left ear significantly improved. Mouth: no lip lesions, mucus membranes moist Cardiovascular: regular rate and rhythm with normal S1S2, no murmur, positive posterior tibial pulses bilaterally, and cap refill < 2 seconds. Lungs: Respirations even, regular, and unlabored on room air. Lungs CTA bila terally, no rhonchi, no rales, no wheezing, and no accessory muscle usage. Abdominal: soft, nontender to palpation, no guarding, no appreciable organomegaly Ext: ROM intact. No gross muscle atrophy, no edema, no contractures Neuro: Speech clear, face symmetrical and CN II-XII grossly intact with no noted focal neuro deficits Psych: Alert and oriented to person, place, time, and situation. Appropriate and pleasant affect. Assessment and Plan of Care: Sepsis secondary to otitis externa, otitis media and complicated by mastoiditis -Continue with vancomycin and cefepime -ENT following, placed ear wick in left ear canal and started patient on Ciprodex 4 drops in left ear 3 times daily and administered a one-time dose of Decadron -IV fluids completed -Continue with Pain control Recent COVID infection -Patient denying cough or shortness of breath -Repeat PCR negative CODE STATUS: Full code DVT prophylaxis: Heparin Discussed with: Patient and RN Anticipated discharge date: Clinical course to determine Anticipated discharge place: Home, possibly tomorrow pending further recommendations from ENT A total of 31 minutes was spent on the care of this complex patient more than 50% of the time was spent in counseling and care coordination. I reviewed the documentation as provided by the PAULINE above, who is the original author of this note. I agree with the documented assessment and plan, with the following changes: none Objective - Vital Signs Vital signs: Vital Signs Temp 98.6 F 06/25/21 05:34 Pulse 70 06/25/21 05:34 Resp 18 06/25/21 05:34 BP 132/79 06/25/21 05:34 Pulse Ox 96 06/25/21 05:34 Intake & Output 06/24/21 06/25/21 06/25/21 18:59 06:59 18:59 Intake Total 1690 500 Balance 1690 500 Intake: Intake, IV Titration 1690 Amount ACETAMINOPHEN IV (For NPO 200 ) 1,000 mg In Empty Bag 1 bag @ 400 mls/hr IVPB Q6H [facility] Rx#:[id number] Cefepime 2 gm In Sodium 200 Chloride 0.9% 100 ml @ 25 mls/hr IVPB Q8HR [facility] Rx# :[id number] Sodium Chloride 0.9% 1, 1040 000 ml @ 130 mls/hr IV . [id number] [facility] Rx#:[id number] Vancomycin 1,250 mg In 250 Sodium Chloride 0.9% 250 ml @ 125 mls/hr IVPB Q8H [facility] Rx#:[id number] Oral 500 Other: Voiding Method Toilet Toilet # Voids 2 - Labs CBC & Chem 7: 06/25/21 06:03 06/25/21 06:03 Labs: Abnormal Lab Results - Last 24 Hours (Table) 06/25/21 Range/Units 06:03 WBC 16.70 H (4.50-10.00) X 10*3/uL RBC 3.50 L (4.10-5.20) X 10*6/uL Hgb 10.4 L (12.0-15.0) g/dL Hct 33.5 L (37.2-46.3) % MCHC 31.0 L (32.0-37.0) g/dL MPV 12.9 H (9.5-12.2) fL Microbiology - Last 24 Hours (Table) 06/23/21 00:15 Blood Culture - Preliminary Blood No Growth after 48 hours 06/23/21 00:00 Blood Culture - Preliminary Blood No Growth after 48 hours
--- NOTE | 2021-06-25 17:25 | PN ---
PROGRESS NOTE SUBJECTIVE: Vital signs are stable. The patient is afebrile. She continues to improve. She states that the ear pain is markedly improved since yesterday. OBJECTIVE: HEENT: Examination of the left ear reveals that the Garland wick is intact. The Garland wick was removed without incident. I am finally able to see the patient's left tympanic membrane, and it does not appear to be infected. The middle ear space does not appear to be infected or filled with any fluid. There remains some purulent material in the canal. Most of the swelling of the canal has receded. The patient's ear is still slightly tender, both the tragus and posteriorly to deep palpation. However, because the patient has a round face, what appears to be swelling anterior to the left ear is most likely just the normal shape of her face. The remainder of the physical exam is unremarkable. ASSESSMENT: Resolving left external otitis. PLAN: I advised the patient that she could be discharged from an ENT standpoint today. However, the primary on her case may decide differently. I have dictated ENT discharge orders for the patient. Her primary care doctor may have other orders. Essentially I have advised the patient to complete the Ciprodex drops that she has at home, and when she completes that, then she should use the remaining drops that she was given at the hospital until they are gone. I will not need to see the patient for followup in my office. Also, she may resume using the Keflex capsules three times daily that she was given prior to her admission to the hospital. I want to take this opportunity to thank you for allowing me to assist in the care of your patient. If I can be of any further assistance, please feel free to call my office. At this time, I will sign off this case. MMODL / IJN: [id number] /
[2021-06-25] MEDS: LACTOBACILLUS ACIDOPH & BULGAR 1 EACH PACKET PO SCH ×2 (17:33→19:59)
[2021-06-26] MEDS: CEFEPIME 2 GM in SODIUM CHLORIDE 0.9% 100 ML IVPB SCH ×2 (06:06→08:51)
[2021-06-26] MEDS: HEPARIN SODIUM,PORCINE/PF 5,000 UNIT/0.5 ML SYRINGE SQ SCH ×2 (06:06→08:51)
[2021-06-26] MEDS: KETOROLAC 15 MG/ML 1 ML VIAL IVP SCH ×3 (06:06→11:02)
[2021-06-26] MEDS: VANCOMYCIN 1,250 MG in SODIUM CHLORIDE 0.9% 250 ML IVPB SCH ×2 (06:06→10:54)
[2021-06-26 06:54] LABS: African American GFR (CKD) >90 (>60 ml/min/1.73 sqM); Non-African American GFR(CKD) >90 (>60 ml/min/1.73 sqM)
[2021-06-26] MEDS: LACTOBACILLUS ACIDOPH & BULGAR 1 EACH PACKET PO SCH (08:50)
[2021-06-26] MEDS: CIPROFLOXACIN-DEXAMETH 0.3-0.1% DROPS 7.5 ML BTL LEFT EAR SCH (08:51)
[2021-06-26 13:44] VITALS: BP 118/75; PULSE 105; TEMP 98.3
--- NOTE | 2021-06-26 13:48 | P.DS ---
Providers Date of admission: 06/22/21 23:46 Expected date of discharge: 06/26/21 Attending physician: Brittany Jeffries MD Consults: 06/23/21 00:11 Consult Physician Routine Consulting Provider: Uriel Hung Consult Reason/Comments: Otitis externa, mastoiditis Do you want consulting provider notified?: Yes Primary care physician: Stated None Hospital Course: 26-year-old female with no known PMH who presented to the emergency room with complaints of left ear and tooth pain. The patient reported that her symptoms started roughly a week ago with initial dull ache in the left ear. The pain gradually worsened, and she was subsequently seen at urgent care center, and was prescribed a antibiotic eardrops. She was then seen in the emergency room for worsening symptoms and was started on oral Keflex, which provided little relief, thereby the patient is presenting to the emergency room again.she reports 10 out of 10 left ear pain with drainage as well as left upper molar pain. Denies any history of ear infections in the past. Reports being diagnosed with COVID 19 one week ago however denied experiencing shortness of breath, cough. Does report fevers over the past 3 days. Denies chest pain, shortness of breath, nausea, vomiting, abdominal pain, diarrhea. A CT of the internal auditory canal without contrast revealed findings consistent with left otitis externa, mild mastoiditis, along with mild otitis externa. Laboratory evaluation revealed leukocytosis of 14.2, sodium 135, lactic acid 1.3. The patient was started on IV vancomycin and cefepime and was admitted for ENT evaluation. Dr. Hung from ENT evaluated the patient, a Garland wick was placed into the ear canal and she was started on Ciprodex 4 times daily in addition to dexamethasone IV taper. She was also started on IV antibiotics, broad-spectrum with cefepime and vancomycin. Her ear improved with the treatment. Eventually she was cleared by ENT for discharge. She will be discharged on Ciprodex eardrops in addition to Keflex. She will need to follow up with her primary care physician in addition to ENT. She was instructed not to pick on her ear or use any cotton swabs. Time for discharge 35 min Plan - Discharge Summary New Discharge Prescriptions: Continue Cephalexin [Keflex] 500 mg PO TID Chlorhexidine Gluconate [Peridex] 15 ml PO BID #473 ml Ciprofloxacin-Dexameth [Ciprodex Otic Susp] 4 drops LEFT EAR BID Discharge Medication List Chlorhexidine Gluconate [Peridex] 15 ml PO BID #473 ml 06/14/21 [Rx] Cephalexin [Keflex] 500 mg PO TID 06/22/21 [History] Ciprofloxacin-Dexameth [Ciprodex Otic Susp] 4 drops LEFT EAR BID 06/22/21 [History] Follow up Appointment(s)/Referral(s): None,Stated [Primary Care Provider] - 1-2 days Activity/Diet/Wound Care/Special Instructions: 1. Discharged instructions for ENT only. Please carefully read/review ENT discharge instructions. From a ENT standpoint it is okay for you to resume normal activities, diet, and work. It is okay for you to shower, shampoo your hair and take baths as usual. You should continue using the remaining antibiotic eardrops that you have at home, Ciprodex, until it is completely gone. You should put 4 drops in the left ear 3 times daily until that medication is completely gone. Once your home medication is gone, then you should start using the Ciprodex ear drops that you were given during your hospitalization, 4 drops in the left ear 3 times daily, until that medication is gone. Also, you were previously placed on Keflex capsules 500 mg by mouth times daily and you should resume that medication once you arrive home and use until it is completely gone. It is important that you get established with a primary care physician for future medical care. Dr. Hung will not need to see you in his office for follow-up.
== END 2021-06-26 15:10 | disposition home or self-care (01) | DRG 872 ==
LOC: EC 19:34 → 5NMEDONC 23:46
PROVIDERS: ADMIT Internal Medicine; ATTEND Internal Medicine
DX: A41.9 Sepsis, unspecified organism (principal); H66.92 Otitis media, unspecified, left ear; H83.02 Labyrinthitis, left ear; D72.829 Elevated white blood cell count, unspecified; F17.210 Nicotine dependence, cigarettes, uncomplicated; Z20.822 Contact with and (suspected) exposure to COVID-19; H60.92 Unspecified otitis externa, left ear; H70.92 Unspecified mastoiditis, left ear; K08.89 Other specified disorders of teeth and supporting structures; R00.0 Tachycardia, unspecified
CPT/HCPCS: 70480; 80048; 80053; 80202; 82565; 83605; 85025; 85027; 87040; 87635; 96374; 96375; 99284